=== PATIENT | male | born 1955 | race Caucasian/White ===

== ENCOUNTER 2020-03-14 16:34 | Inpatient (IN) ==
--- NOTE | 2020-03-14 17:03 | Emergency Department Note ---
Impression & Plan Post-operative infection ED Provider Note NAME: FE DEL TORO AGE: 64 SEX: M : 1955 ARRIVES VIA: Walk-In INFORMANT: Patient, ED PROVIDER(S): Hung Paulino DO CHIEF COMPLAINT: Left knee pain HPI: The patient is a 64-year-old male who presented to the emergency department for left knee pain and drainage. The patient has been having swelling and pain in his knee for the last few days. He noticed pain ever since he had surgery. He had surgery on February 14 at [facility] for knee replacement. This procedure was actually a revision of a previous knee replacement. He was seen by his primary surgeon today and sent to the emergency department for further evaluation and for possible admission for left knee infection. The patient describes drainage which is bloody and thin. He denies having any fever. He denies having any chills. He denies having any hip pain nausea or vomiting. He does complain of severe swelling and redness over the area. He does not notice any calf pain. The patient currently does not take blood thinners. He has had no trauma to this knee. ROS: See above HPI for pertinent positives & negatives. A total of 10 systems reviewed and were otherwise negative. PAST MEDICAL HISTORY: See Below PAST SURGICAL HISTORY: See Below FAMILY HISTORY: See Below SOCIAL HISTORY: See Below HOME MEDICATIONS: See Below ALLERGIES: See Below VITALS: See Below PHYSICAL EXAMINATION: GENERAL: Patient is awake alert in no acute distress patient is resting comfortably and showing no signs of anxiety EYES: The conjunctivae are clear. The pupils are round and reactive. EARS, NOSE, MOUTH AND THROAT: The nose is without any evidence of any deformity. NECK: The neck is nontender and supple. RESPIRATORY: Normal respiratory effort is noted there is no evidence of wheezing rhonchi or rales CARDIOVASCULAR: Regular rate and rhythm noted there no murmurs rubs or gallops normal S1 normal S2. GASTROINTESTINAL: The abdomen is soft. Abdomen is nontender. MUSCULOSKELETAL/EXTREMITIES: There is significant effusion and redness to the left knee. There is warmth to the knee joint. There is significant pain with range of motion testing of the left knee. The inferior portion of the surgical site has a small opening with serosanguineous drainage noted. SKIN: There is no obvious evidence of any rash. Pedal edema was noted bilaterally. Pulses are symmetric in both feet. NEUROLOGIC: Patient is awake alert and oriented x3. MEDICAL DECISION MAKING: The patient is a 64-year-old male who presented to the emergency department for an evaluation of left knee pain. The patient appears to have a postoperative infection in his left knee. His surgery was February 14. He was seen by his primary orthopedic physician today and sent to our facility for further evaluation. I discussed his condition with the on-call orthopedic surgeon for [facility]. At this time they would recommend holding antibiotics until formal cultures can be taken and likely the patient will require surgical intervention and washout. At this time the patient does not appear to be septic. He is not tachycardic hypotensive or febrile. If this changes likely he will require IV antibiotics sooner. I discussed this plan with the patient he was agreeable. Triage Nursing notes reviewed. Prior medical records reviewed Vital Signs: reviewed and remarkable for elevated blood pressure. Differential diagnosis: Differential diagnosis in this patient could include postoperative infection, postoperative bleeding, injury to adjacent structure, fracture, systemic infec tion and other differential diagnoses were considered. ER treatment provided: See below Diagnostics interpreted by me: ECG: none Cardiac Monitoring: An order was placed for continuous cardiac monitoring. The monitor shows a rate of 88 with sinus rhythm. Laboratory studies: As stated above and show below. Imaging studies: See below Consultation(s): 1715: I discussed this case with Dr. Townsend. He is agreed to evaluate the patient for further management and likely surgical intervention. 1810: I discussed this case with Dr. Davis. He will evaluate the patient in the emergency department for medical clearance. ED COURSE: Procedures: none PDMP:reviewed and no issues Critical Care: None Past Med/Surg History Medical History Anxiety Depression High cholesterol Hypertension Hypothyroid Surgical History History of left knee replacement Hx of umbilical hernia repair Social History Smoking Status: Never smoker Preferred Language: Luxembourgish Feels Safe at Home: Yes Results & Data (ED) Vital Signs Vital Signs - 24 hr 03/14/20 16:36 Temperature 36.7 C Temperature Source Oral Pulse Rate 68 Respiratory Rate 18 Blood Pressure 150/67 H Blood Pressure Mean 94 Pulse Oximetry 96 Oxygen Delivery Method Room Air Sepsis Recent Fever Within 48 Hours No Sepsis New/Unexplained Change in Mental Status No Sepsis Action Taken by Nursing No Action Required Laboratory Data Result diagrams: 03/14/20 17:10 03/14/20 17:10 Lab Results 03/14/20 03/14/20 03/14/20 Range/Units 17:10 17:10 17:10 WBC 10.40 (4.8-10.8) K/uL RBC 3.88 L (4.7-6.1) M/uL Hgb 10.8 L (14.0-18.0) g/dL Hct 33.5 L (42-52) % MCV 86.3 (80-100) fL MCH 27.8 (25-34) pg MCHC 32.2 (32-36) g/dL RDW Std Deviation 46.2 (36.4-46.3) fL RDW Coeff of Colt 14.8 H (11.5-14.5) % Plt Count 267 (130-400) K/uL MPV 8.7 (7.4-10.4) fL Immature Gran % (Auto) 0.9 % Neut % (Auto) 67.1 % Lymph % (Auto) 13.2 % Levy % (Auto) 10.8 % Eos % (Auto) 7.7 % Baso % (Auto) 0.3 % Neut # (Auto) 6.99 H (1.4-6.5) K/uL Lymph # (Auto) 1.37 (1.2-3.4) K/uL Levy # (Auto) 1.12 H (0.11-0.59) K/uL Eos # (Auto) 0.80 H (0-0.5) K/uL Baso # (Auto) 0.03 (0-0.2) K/uL Immature Gran # (Auto) 0.09 H (0.00-0.02) K/uL ESR 63 H (0-14) mm/hr PT 11.2 (9.0-12.0) Seconds INR 1.1 (0.9-1.1) APTT 28.9 (21.0-31.0) Seconds PTT Ratio 1.0 Sodium (136-145) mmol/L Potassium (3.5-5.1) mmol/L Chloride (98-107) mmol/L Carbon Dioxide (21-32) mmol/L Anion Gap (3-11) BUN (7-18) mg/dl Creatinine (0.6-1.4) mg/dl Est Cr Clr Drug Dosing ml/min Est GFR ( Amer) Est GFR (Non-Af Amer) BUN/Creatinine Ratio (10-20) Glucose (70-99) mg/dl Calcium (8.5-10.1) mg/dl Total Bilirubin (0.2-1) mg/dl AST (15-37) U/L ALT (12-78) U/L Alkaline Phosphatase (45-117) U/L C-Reactive Protein (0-0.29) mg/dl Total Protein (6.4-8.2) gm/dl Albumin (3.4-5.0) gm/dl Globulin (2.5-4.0) gm/dl Albumin/Globulin Ratio (0.9-2) 03/14/20 Range/Units 17:10 WBC (4.8-10.8) K/uL RBC (4.7-6.1) M/uL Hgb (14.0-18.0) g/dL Hct (42-52) % MCV (80-100) fL MCH (25-34) pg MCHC (32-36) g/dL RDW Std Deviation (36.4-46.3) fL RDW Coeff of Colt (11.5-14.5) % Plt Count (130-400) K/uL MPV (7.4-10.4) fL Immature Gran % (Auto) % Neut % (Auto) % Lymph % (Auto) % Levy % (Auto) % Eos % (Auto) % Baso % (Auto) % Neut # (Auto) (1.4-6.5) K/uL Lymph # (Auto) (1.2-3.4) K/uL Levy # (Auto) (0.11-0.59) K/uL Eos # (Auto) (0-0.5) K/uL Baso # (Auto) (0-0.2) K/uL Immature Gran # (Auto) (0.00-0.02) K/uL ESR (0-14) mm/hr PT (9.0-12.0) Seconds INR (0.9-1.1) APTT (21.0-31.0) Seconds PTT Ratio Sodium 134 L (136-145) mmol/L Potassium 4.5 (3.5-5.1) mmol/L Chloride 101 (98-107) mmol/L Carbon Dioxide 29 (21-32) mmol/L Anion Gap 4.0 (3-11) BUN 34 H (7-18) mg/dl Creatinine 1.54 H (0.6-1.4) mg/dl Est Cr Clr Drug Dosing 65.3 ml/min Est GFR ( Amer) 54.1 Est GFR (Non-Af Amer) 46.7 BUN/Creatinine Ratio 22.3 H (10-20) Glucose 82 (70-99) mg/dl Calcium 9.2 (8.5-10.1) mg/dl Total Bilirubin 0.3 (0.2-1) mg/dl AST 16 (15-37) U/L ALT 17 (12-78) U/L Alkaline Phosphatase 79 (45-117) U/L C-Reactive Protein 11.40 H (0-0.29) mg/dl Total Protein 7.5 (6.4-8.2) gm/dl Albumin 2.6 L (3.4-5.0) gm/dl Globulin 4.9 H (2.5-4.0) gm/dl Albumin/Globulin Ratio 0.5 L (0.9-2) Discharge Plan Visit Data Chief Complaint: Infection Stated Complaint: KNEE REPLACEMENT IN FEBRUARY ED Provider: Hung Paulino Discharge Problem: Post-operative infection Patient Disposition: Being Evaluated by Surgeon Condition: Good Forms Stand Alone Forms: My [facility] Referrals Referrals: Yael Coelho C.R.N.P. [Primary Care Provider] - Discharge Problem: Post-operative infection Qualifiers: Encounter type: initial encounter Postoperative infection type: unspecified type Qualified Code(s): T81.40XA - Infection following a procedure, unspecified, initial encounter
[2020-03-14 17:24] LABS: Basophils # (auto) 0.03 K/uL (0-0.2); Basophils % (auto) 0.3 %; Eosinophils % (auto) 7.7 %; Hematocrit (blood only) 33.5 % (42-52); Hemoglobin 10.8 g/dL (14.0-18.0); Immature Granulocytes # (auto) 0.09 K/uL (0.00-0.02); Immature Granulocytes % (auto) 0.9 %; Lymphocytes # (auto) 1.37 K/uL (1.2-3.4); Lymphocytes % (auto) 13.2 %; Mean Corpuscular Hemoglobin 27.8 pg (25-34); Mean Corpuscular Hgb Conc 32.2 g/dL (32-36); Mean Corpuscular Volume 86.3 fL (80-100); Mean Platelet Volume 8.7 fL (7.4-10.4); Monocytes # (auto) 1.12 K/uL (0.11-0.59); Monocytes % (auto) 10.8 %; Neutrophils # (auto) 6.99 K/uL (1.4-6.5); Neutrophils % (auto) 67.1 %; Platelet Count 267 K/uL (130-400); RDW Coefficient of Variation 14.8 % (11.5-14.5); RDW Standard Deviation 46.2 fL (36.4-46.3); Red Blood Count 3.88 M/uL (4.7-6.1)
[2020-03-14 17:39] LABS: INR 1.1 (0.9-1.1); Partial Thromboplastin Time 28.9 Seconds (21.0-31.0); Prothrombin Time 11.2 Seconds (9.0-12.0)
[2020-03-14 17:41] LABS: Albumin Level 2.6 gm/dl (3.4-5.0); BUN Creatinine Ratio 22.3 (10-20); C Reactive Protein 11.4 mg/dl (0-0.29); Calcium 9.2 mg/dl (8.5-10.1); Creatinine Clr Calc Pharmacy 65.3 ml/min; Est GFR (African American) 54.1; Est GFR (Non-African American) 46.7; Potassium 4.5 mmol/L (3.5-5.1)
--- NOTE | 2020-03-14 17:42 | XRay Report ---
XR knee LT 3V CLINICAL HISTORY: infection, recent surgery COMPARISON: Left knee radiographs August 15, 2019. FINDINGS: Alignment of the revision total left knee arthroplasty is anatomic. No periprosthetic frac ture or lucency is noted. Diffuse soft tissue swelling of the left knee is noted. There is moderate p re and infrapatellar soft tissue swelling. No definite joint effusion is noted although sensitivity i s diminished on this exam. IMPRESSION: 1. Status post revision total left knee arthroplasty. No periprosthetic fracture or lucency. 2. Left knee soft tissue swelling. No definite joint effusion. ACT 112: Negative or not required by law. Electronically signed by: Irwin Carlton M.D. 03/14/2020 5:41 PM
[2020-03-14 17:44] LABS: Albumin Globulin Ratio 0.5 (0.9-2); Bilirubin,Total 0.3 mg/dl (0.2-1); Globulin 4.9 gm/dl (2.5-4.0); Total Protein 7.5 gm/dl (6.4-8.2)
[2020-03-14] MEDS ORDERED: ONDANSETRON INJ 2 MG/ML 2 ML VIAL IV PRN (17:51)
--- NOTE | 2020-03-14 19:07 | History & Physical Report ---
Date of Service March 14, 2020 Assessment & Plan (1) Infection of total left knee replacement: The patient is a 64-year-old male with 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 I discussed the case with the patient's primary surgeon Dr. Baum in detail. Due to unavailability to care for the patient at this time we will proceed with irrigation debridement of left total knee with poly-exchange. Dr. Baum will follow up with the patient postoperatively. I have indicated the patient for irrigation debridement of left total knee with poly-exchange, the risk, benefits, complications alternatives to the procedure were explained to the patient detail which include however not limited to persistent or recurrent infections, acute blood loss, blood clots, injury to surrounding nerves, bone, vessels, soft tissue, arthrofibrosis, chronic pain, failure of the prosthesis, dislocation of the joint, limb length discrepancies, need for additional surgery, sepsis, loss of limb and loss of life. Alternatives include no surgery which would result and persistent and worsening infection symptoms and sepsis and . The patient wished to proceed with surgery at this time and informed sent was obtained. -Plan for surgery 03/15/20, I+D L TKA with poly exchange -NPO -Hold antibiotics till intra-operative cultures -Hold Anticoagulation -WBAT LLE -Medical consultation for co-mgnt/optimization for surgery -ID consultation for abx recs History of Present Illness Chief Complaint: Left knee surgical site infection Primary Care Provider: Yael Coelho The patient is a 64 year male who has significant PSHx for revision L TKA by Dr. Baum on 02/15/20. His post operative course was relatively uneventful however on 03/07/20, the patient reported drainage from the inferior aspect of his incision. He was seen by Dr. Baum on 03/11/2020 and 03/14/20 in the office and sent to [facility] for I+D of left TKA secondary to persistent drainage, surgical site infection. Denies F/C/N/V/SOB/CP. Allergies Allergy/AdvReac Type Severity Reaction Status Date / Time No Known Allergies Allergy Unverified 03/14/20 18:21 Home Medications Home Medications Medication Instructions Recorded Confirmed Type Unk Antibiotic Ear Gtts 2 drp OTR UD PRN 03/14/20 03/14/20 History allopurinol 100 mg PO DAILY 03/14/20 03/14/20 History aspirin [Aspir-81] 81 mg PO BID 03/14/20 03/14/20 History atenolol 50 mg PO DAILY 03/14/20 03/14/20 History benzoyl peroxide 1 applic TOPICAL DAILY 03/14/20 03/14/20 History buspirone 30 mg PO BID 03/14/20 03/14/20 History cefadroxil 500 mg PO BID 03/14/20 03/14/20 History celecoxib [Celebrex] 200 mg PO BID 03/14/20 03/14/20 History doxycycline hyclate 50 mg PO DAILY 03/14/20 03/14/20 History escitalopram oxalate [Lexapro] 20 mg PO DAILY 03/14/20 03/14/20 History hydrochlorothiazide 25 mg PO DAILY 03/14/20 03/14/20 History levothyroxine 50 mcg PO DAILY 03/14/20 03/14/20 History lisinopril 20 mg PO DAILY 03/14/20 03/14/20 History meloxicam 15 mg PO DAILY PRN 03/14/20 03/14/20 History ondansetron HCl 8 mg PO Q8H PRN 03/14/20 03/14/20 History oxycodone [Roxicodone] 5 mg PO Q4 PRN 03/14/20 03/14/20 History sennosides [Senokot] 8.6 mg PO HS PRN 03/14/20 03/14/20 History simvastatin 20 mg PO HS 03/14/20 03/14/20 History Past Med/Surg History Medical History Anxiety Depression High cholesterol Hypertension Hypothyroid Surgical History History of left knee replacement Hx of umbilical hernia repair Social History Smoking Status: Former smoker Hx Alcohol Use: No Hx Substance Use: No Preferred Language: Comoran Communication Ability: Effective Golf Technician Required: No Beliefs That Will Affect Care: None Current Living Situation: Family Other Information That Helps Us Care for You: No Feels Safe at Home: Yes Safety Concerns: Feels Safe At This Time Review of Systems Review of Systems: All systems reviewed & are unremarkable except as noted in HPI & below Constitutional: as per Subjective / HPI Physical Exam Physical Exam: LLE NVSI +EHL/FHL/TA/GS SILT grossly, +2 DP pulse, compartments soft NT, moderate effusion, adalid-incisional erythema and warmth to touch, wound dehiscence distal incision 1 cm with serosanguineous drainage. Constitutional: WD/WN, vitals as above Eyes: PERRL, conjunctivae normal, anicteric sclerae ENMT: external ear and nose normal, oropharynx normal Neck: trachea midline, no thyromegaly Respiratory: normal respiratory effort, lungs clear to auscultation Cardiovascular: RRR, no murmur, no edema Gastrointestinal (Abdomen): normal bowel sounds, soft, nontender, no hepatosplenomegaly Musculoskeletal: no cyanosis or clubbing, extremities motor strength 5/5 Skin: no rashes, warm and dry Neurologic: patellar DTR's 2+ bilat, sensation intact Psychiatric: A+Ox3, euthymic affect Lymphatic: no cervical or axillary lymphadenopathy Results & Data Results & Data ([facility]) Vital Signs (Past 12 Hours) Vital Signs Temp Pulse Pulse Resp BP BP Pulse Ox 03/14/20 18:34 56 L 18 135/67 98 03/14/20 16:36 36.7 C 68 18 150/67 H 96 Laboratory Results 03/14/20 03/14/20 03/14/20 Range/Units 17:10 17:10 17:10 WBC (4.8-10.8) K/uL RBC (4.7-6.1) M/uL Hgb (14.0-18.0) g/dL Hct (42-52) % MCV (80-100) fL MCH (25-34) pg MCHC (32-36) g/dL RDW Std Deviation (36.4-46.3) fL RDW Coeff of Colt (11.5-14.5) % Plt Count (130-400) K/uL MPV (7.4-10.4) fL Immature Gran % (Auto) % Neut % (Auto) % Lymph % (Auto) % [place] % (Auto) % Eos % (Auto) % Baso % (Auto) % Neut # (Auto) (1.4-6.5) K/uL Lymph # (Auto) (1.2-3.4) K/uL [place] # (Auto) (0.11-0.59) K/uL Eos # (Auto) (0-0.5) K/uL Baso # (Auto) (0-0.2) K/uL Immature Gran # (Auto) (0.00-0.02) K/uL ESR (0-14) mm/hr PT 11.2 (9.0-12.0) Seconds INR 1.1 (0.9-1.1) APTT 28.9 (21.0-31.0) Seconds PTT Ratio 1.0 Sodium 134 L (136-145) mmol/L Potassium 4.5 (3.5-5.1) mmol/L Chloride 101 (98-107) mmol/L Carbon Dioxide 29 (21-32) mmol/L Anion Gap 4.0 (3-11) BUN 34 H (7-18) mg/dl Creatinine 1.54 H (0.6-1.4) mg/dl Est Cr Clr Drug Dosing 65.3 ml/min Est GFR ( Amer) 54.1 Est GFR (Non-Af Amer) 46.7 BUN/Creatinine Ratio 22.3 H (10-20) Glucose 82 (70-99) mg/dl Calcium 9.2 (8.5-10.1) mg/dl Total Bilirubin 0.3 (0.2-1) mg/dl AST 16 (15-37) U/L ALT 17 (12-78) U/L Alkaline Phosphatase 79 (45-117) U/L C-Reactive Protein 11.40 H (0-0.29) mg/dl Total Protein 7.5 (6.4-8.2) gm/dl Albumin 2.6 L (3.4-5.0) gm/dl Globulin 4.9 H (2.5-4.0) gm/dl Albumin/Globulin Ratio 0.5 L (0.9-2) Procalcitonin 0.12 (0-0.5) ng/ml 03/14/20 03/14/20 Range/Units 17:10 17:10 WBC 10.40 (4.8-10.8) K/uL RBC 3.88 L (4.7-6.1) M/uL Hgb 10.8 L (14.0-18.0) g/dL Hct 33.5 L (42-52) % MCV 86.3 (80-100) fL MCH 27.8 (25-34) pg MCHC 32.2 (32-36) g/dL RDW Std Deviation 46.2 (36.4-46.3) fL RDW Coeff of Colt 14.8 H (11.5-14.5) % Plt Count 267 (130-400) K/uL MPV 8.7 (7.4-10.4) fL Immature Gran % (Auto) 0.9 % Neut % (Auto) 67.1 % Lymph % (Auto) 13.2 % [place] % (Auto) 10.8 % Eos % (Auto) 7.7 % Baso % (Auto) 0.3 % Neut # (Auto) 6.99 H (1.4-6.5) K/uL Lymph # (Auto) 1.37 (1.2-3.4) K/uL [place] # (Auto) 1.12 H (0.11-0.59) K/uL Eos # (Auto) 0.80 H (0-0.5) K/uL Baso # (Auto) 0.03 (0-0.2) K/uL Immature Gran # (Auto) 0.09 H (0.00-0.02) K/uL ESR 63 H (0-14) mm/hr PT (9.0-12.0) Seconds INR (0.9-1.1) APTT (21.0-31.0) Seconds PTT Ratio Sodium (136-145) mmol/L Potassium (3.5-5.1) mmol/L Chloride (98-107) mmol/L Carbon Dioxide (21-32) mmol/L Anion Gap (3-11) BUN (7-18) mg/dl Creatinine (0.6-1.4) mg/dl Est Cr Clr Drug Dosing ml/min Est GFR ( Amer) Est GFR (Non-Af Amer) BUN/Creatinine Ratio (10-20) Glucose (70-99) mg/dl Calcium (8.5-10.1) mg/dl Total Bilirubin (0.2-1) mg/dl AST (15-37) U/L ALT (12-78) U/L Alkaline Phosphatase (45-117) U/L C-Reactive Protein (0-0.29) mg/dl Total Protein (6.4-8.2) gm/dl Albumin (3.4-5.0) gm/dl Globulin (2.5-4.0) gm/dl Albumin/Globulin Ratio (0.9-2) Procalcitonin (0-0.5) ng/ml Diagnostic Findings XR knee LT 3V CLINICAL HISTORY: infection, recent surgery COMPARISON: Left knee radiographs August 15, 2019. FINDINGS: Alignment of the revision total left knee arthroplasty is anatomic. No periprosthetic fracture or lucency is noted. Diffuse soft tissue swelling of the left knee is noted. There is moderate pre and infrapatellar soft tissue swelling. No definite joint effusion is noted although sensitivity is diminished on this exam. IMPRESSION: 1. Status post revision total left knee arthroplasty. No periprosthetic fracture or lucency. 2. Left knee soft tissue swelling. No definite joint effusion.
--- NOTE | 2020-03-14 19:42 | Hospitalist Consultation ---
Date of Consultation March 14, 2020 Assessment & Plan (1) Infection of total left knee replacement: Admission under orthopedics for planned surgery tomorrow, I&D with poly exchange. Oxycodone PO or dilaudid 0.5mg IV (when NPO) PRN for pain, no NSAIDs unless ordered by orthopedics NPO after midnight Will increase IV fluids order NSS to 125 ml/hr with addition 500ml bolus now as although baseline Cr unknown I suspect he is dehydrated No cultures from clinic therefore holding off antibiotics until culture taken in surgery Will defer post op DVT prophylaxis to orthopedics Patient is medically optimized for surgery - assuming no drastic changes in his labs in the morning. Revised cardiac risk score 0, 3.9% risk of , DE or cardiac arrest. (2) Hypothyroid: Patient reports well controlled for years Continue levothyroxine 50 mcg PO daily (3) Hypertension: Hold HCTZ pre-operatively Continue atenolol and lisinopril (4) High cholesterol: Continue simvastatin (5) Depression: Continue Lexapro 20mg PO daily (6) Anxiety: Continue Buspar 30mg PO BID History of Present Illness Reason for Consultation: Left knee infection Attending Physician: Jasno Strange DO History of Present Illness Liam Oviedo is a 64 year old who presents to the ER on the advice of his orthopedic surgeon due to left TKA infection. He is primarily under the orthopedic team. Medicine consult for pre-op clearance. He reports original operation performed at [facility] in [place] 4.5 years ago. He had been having pain ever since that operation and eventual underwent revision in February with Dr Baum. He reports no problems with the anesthesia on that occasion. Part of his pre-op clearance was a negative NM stress test. Initial doing well after this operation. He started having Knee erythema, swelling and drainage 1 week ago on Tuesday and he was prescribed cefadroxil. He went to his orthopedic surgeons office (saw TREMAYNE) 4 days ago with significant drainage described by the patient although no culture taken at that time. He reports it has been getting worse since then with increasing pain. Went back to see Dr Baum today and advised to go to [facility] ER due to infected knee joint. In addition to the PO cefadroxil for the last week he also takes doxycycline chronically at 50mg PO daily for acne. No known CAD, No chest pain or shortness of breath on exertion. Former smoker quit 1994, smoked on and off for 20 years. No fevers, chills, shortness of breath, cough, loss of taste or smell or known COVID-19 exposure. Allergies Allergy/AdvReac Type Severity Reaction Status Date / Time No Known Allergies Allergy Unverified 03/14/20 18:21 Home Medications Home Medications Medication Instructions Recorded Confirmed Type Unk Antibiotic Ear Gtts 2 drp OTR UD PRN 03/14/20 03/14/20 History allopurinol 100 mg PO DAILY 03/14/20 03/14/20 History aspirin [Aspir-81] 81 mg PO BID 03/14/20 03/14/20 History atenolol 50 mg PO DAILY 03/14/20 03/14/20 History benzoyl peroxide 1 applic TOPICAL DAILY 03/14/20 03/14/20 History buspirone 30 mg PO BID 03/14/20 03/14/20 History cefadroxil 500 mg PO BID 03/14/20 03/14/20 History celecoxib [Celebrex] 200 mg PO BID 03/14/20 03/14/20 History doxycycline hyclate 50 mg PO DAILY 03/14/20 03/14/20 History escitalopram oxalate [Lexapro] 20 mg PO DAILY 03/14/20 03/14/20 History hydrochlorothiazide 25 mg PO DAILY 03/14/20 03/14/20 History levothyroxine 50 mcg PO DAILY 03/14/20 03/14/20 History lisinopril 20 mg PO DAILY 03/14/20 03/14/20 History meloxicam 15 mg PO DAILY PRN 03/14/20 03/14/20 History ondansetron HCl 8 mg PO Q8H PRN 03/14/20 03/14/20 History oxycodone [Roxicodone] 5 mg PO Q4 PRN 03/14/20 03/14/20 History sennosides [Senokot] 8.6 mg PO HS PRN 03/14/20 03/14/20 History simvastatin 20 mg PO HS 03/14/20 03/14/20 History Patient History Medical History Anxiety Depression High cholesterol Hypertension Hypothyroid Surgical History History of left knee replacement Hx of umbilical hernia repair Social History Smoking Status: Former smoker Hx Alcohol Use: No Hx Substance Use: No Preferred Language: South Sudanese Communication Ability: Effective V Groove Cutter Required: No Beliefs That Will Affect Care: None Current Living Situation: Family Other Information That Helps Us Care for You: No Feels Safe at Home: Yes Safety Concerns: Feels Safe At This Time Review of Systems Review of Systems: All systems reviewed & are unremarkable except as noted in HPI & below Physical Exam Constitutional: well developed, + acute distress (pain in left knee) and + morbidly obese; + not well nourished Eyes: + anicteric sclerae; normal pupil size ENMT: external ear and nose normal, oropharynx normal Neck: trachea midline, no thyromegaly Respiratory: normal respiratory effort, lungs clear to auscultation Cardiovascular: Rate/Rhythm: regular rate and regular rhythm Heart Sounds: no murmur Vessels: no JVD Extremities: normal capillary refill and + pedal edema (trace b/l equal) Gastrointestinal (Abdomen): normal bowel sounds, soft, nontender, no hepatosplenomegaly Musculoskeletal: no cyanosis or clubbing, extremities motor strength 5/5 Skin: Cellulitis area around distal and proximal surgical incision with swelling and warmth, bloody drainage from distal surgical wound Neurologic: moves all extremities and awake; no focal motor deficits and not confused Psychiatric: A+Ox3, euthymic affect Genitourinary: no CVA tenderness Results & Data Results & Data ([facility]) Vital Signs (Past 12 Hours) Vital Signs Temp Pulse Pulse Resp BP BP Pulse Ox 03/14/20 18:34 56 L 18 135/67 98 03/14/20 16:36 36.7 C 68 18 150/67 H 96 Diagnostic Findings XR chest 2V PA/lateral IMPRESSION: No acute cardiopulmonary findings. XR chest 2V PA/lateral IMPRESSION: No acute cardiopulmonary findings. ECG Indication: other (pre-op) Rate (beats per minute): 63 Rhythm: normal sinus Findings: no acute ischemic change Comparison ECG Date: no prior available PG Care Time/CCT Total # of Minutes Spent Total Time Spent with Patient: Total time spent is greater than 50% in coordination of care (as documented) at patient's floor/unit and/or counseling patient: Coding Level of Care Code 87599 Inpt Consult Level 4 Diagnoses Infection of total left knee replacement T84.54XA Hypothyroid E03.9 Hypertension I10 High cholesterol E78.00 Depression F32.9 Anxiety F41.9
--- NOTE | 2020-03-14 20:20 | XRay Report ---
XR chest 2V PA/lateral CLINICAL HISTORY: Preoperative evaluation. COMPARISON STUDY: No previous studies for comparison. FINDINGS: Lung volumes are normal. Mild linear left basilar opacity suggests atelectasis or scarring. There is no pneumothorax or pleural effusion. Cardiac size is normal. Mediastinal contours are jero l. There is no evidence for pulmonary edema. Postoperative findings within the right shoulder are inc identally noted. A screw fragment is noted. IMPRESSION: No acute cardiopulmonary findings. ACT 112: Negative or not required by law. Electronically signed by: Irwin Carlton M.D. 03/14/2020 8:18 PM
[2020-03-14] MEDS ORDERED: SENNA 8.6 MG TAB PO SCH (21:00)
[2020-03-14] MEDS ORDERED: ONDANSETRON 8MG OD TAB PO PRN (21:00)
[2020-03-14] MEDS ORDERED: ASPIRIN 81 MG ECTAB PO SCH (21:00)
[2020-03-14] MEDS: OXYCODONE HCL IR 5 MG TAB (IMMEDIATE RELEASE) PO PRN (21:05)
[2020-03-14] MEDS: BusPIRone 15 MG TAB PO SCH (21:06)
[2020-03-14] MEDS: DOCUSATE SODIUM 100 MG CAP PO SCH (21:06)
[2020-03-14] MEDS: SIMVASTATIN 20 MG TAB PO SCH (21:11)
[2020-03-14] MEDS ORDERED: SODIUM CHLORIDE 0.9% 1000ML 500 ML IV ONE (21:45)
[2020-03-15] MEDS: SODIUM CHLORIDE 0.9% 1000ML 1,000 ML IV SCH ×3 (00:01→15:26)
[2020-03-15] MEDS: ACETAMINOPHEN 500 MG TAB PO PRN (00:01)
[2020-03-15] MEDS: OXYCODONE HCL IR 5 MG TAB (IMMEDIATE RELEASE) PO PRN ×3 (05:06→20:25)
[2020-03-15 06:22] LABS: Basophils # (auto) 0.02 K/uL (0-0.2); Basophils % (auto) 0.2 %; Eosinophils # (auto) 0.81 K/uL (0-0.5); Eosinophils % (auto) 9.6 %; Hematocrit (blood only) 29.4 % (42-52); Hemoglobin 9.5 g/dL (14.0-18.0); Immature Granulocytes # (auto) 0.06 K/uL (0.00-0.02); Immature Granulocytes % (auto) 0.7 %; Lymphocytes # (auto) 1.28 K/uL (1.2-3.4); Lymphocytes % (auto) 15.1 %; Mean Corpuscular Hemoglobin 27.9 pg (25-34); Mean Corpuscular Hgb Conc 32.3 g/dL (32-36); Mean Corpuscular Volume 86.2 fL (80-100); Mean Platelet Volume 8.8 fL (7.4-10.4); Monocytes # (auto) 0.71 K/uL (0.11-0.59); Monocytes % (auto) 8.4 %; Neutrophils # (auto) 5.59 K/uL (1.4-6.5); Platelet Count 234 K/uL (130-400); RDW Coefficient of Variation 14.8 % (11.5-14.5); RDW Standard Deviation 46.6 fL (36.4-46.3); Red Blood Count 3.41 M/uL (4.7-6.1); White Blood Count 8.47 K/uL (4.8-10.8)
[2020-03-15 06:49] LABS: BUN Creatinine Ratio 22.6 (10-20); Calcium 8.2 mg/dl (8.5-10.1); Creatinine Clr Calc Pharmacy 69.3 ml/min; Est GFR (African American) 58.2; Est GFR (Non-African American) 50.2; Potassium 3.9 mmol/L (3.5-5.1)
[2020-03-15] MEDS: HYDROmorphone INJ 0.5 MG/0.5 ML SYR IV PRN ×4 (07:31→23:53)
[2020-03-15] MEDS: DOCUSATE SODIUM 100 MG CAP PO SCH ×3 (08:44→20:27)
[2020-03-15] MEDS: BusPIRone 15 MG TAB PO SCH ×2 (08:44→20:27)
[2020-03-15] MEDS: ESCITALOPRAM OXALATE 20 MG TAB PO SCH (08:45)
[2020-03-15] MEDS ORDERED: hydroCHLOROthiazide 25 MG TAB PO SCH (09:00)
[2020-03-15] MEDS ORDERED: DOXYCYCLINE HYCLATE 50 MG CAP PO SCH (09:00)
[2020-03-15] MEDS ORDERED: lisinopriL 20 MG TAB PO SCH (09:00)
[2020-03-15] MEDS ORDERED: fentaNYL citrate 100 MCG/2 ML VIAL ONE ×6 (09:57→14:31)
--- NOTE | 2020-03-15 10:05 | History & Physical Bridge Note ---
Date of Service March 15, 2020 History & Physical Bridge Note I have examined the patient, reviewed the History & Physical and in the interval since the performance of the History & Physical I have noted the following changes of clinical significance: no changes noted
--- NOTE | 2020-03-15 10:15 | Anesthesiology Consultation ---
Date of Service March 15, 2020 Assessment & Plan Chart Review Chart Review: Acceptable Risk for Surgery Consults Requested none History Surgery Operation Date: 03/15/20 09:10 Proposed Procedures p Incision and Drainage Left Total Knee with Poly Exchange - Jason Strange DO Height/Weight Height: 5 ft 9 in Weight: 135 kg Allergies Allergy/AdvReac Type Severity Reaction Status Date / Time No Known Allergies Allergy Unverified 03/14/20 18:21 Medications Home Medications Medication Instructions Recorded Confirmed Last Taken Unk Antibiotic Ear Gtts 2 drp OTR UD PRN 03/14/20 03/14/20 Unknown allopurinol 100 mg PO DAILY 03/14/20 03/14/20 Unknown aspirin [Aspir-81] 81 mg PO BID 03/14/20 03/14/20 Unknown atenolol 50 mg PO DAILY 03/14/20 03/14/20 Unknown benzoyl peroxide 1 applic TOPICAL DAILY 03/14/20 03/14/20 Unknown buspirone 30 mg PO BID 03/14/20 03/14/20 Unknown cefadroxil 500 mg PO BID 03/14/20 03/14/20 Unknown celecoxib [Celebrex] 200 mg PO BID 03/14/20 03/14/20 Unknown doxycycline hyclate 50 mg PO DAILY 03/14/20 03/14/20 Unknown escitalopram oxalate [Lexapro] 20 mg PO DAILY 03/14/20 03/14/20 Unknown hydrochlorothiazide 25 mg PO DAILY 03/14/20 03/14/20 Unknown levothyroxine 50 mcg PO DAILY 03/14/20 03/14/20 Unknown lisinopril 20 mg PO DAILY 03/14/20 03/14/20 Unknown meloxicam 15 mg PO DAILY PRN 03/14/20 03/14/20 Unknown ondansetron HCl 8 mg PO Q8H PRN 03/14/20 03/14/20 Unknown oxycodone [Roxicodone] 5 mg PO Q4 PRN 03/14/20 03/14/20 Unknown sennosides [Senokot] 8.6 mg PO HS PRN 03/14/20 03/14/20 Unknown simvastatin 20 mg PO HS 03/14/20 03/14/20 Unknown Active Medications Generic Name Dose Route Start Last Admin Trade Name Freq PRN Reason Stop Dose Admin Acetaminophen 1,000 mg 03/14/20 17:51 03/15/20 00:01 Tylenol PO 04/13/20 17:50 1,000 mg Q8H PRN Administration Temp>38.5 or Headache Aspirin 81 mg 03/14/20 21:00 03/14/20 21:06 Ecotrin Ectab PO 04/13/20 20:59 81 mg BID OSWALDO Administration Buspirone HCl 30 mg 03/14/20 21:00 03/15/20 08:44 Buspar PO 04/13/20 20:59 Not Given BID OSWALDO Docusate Sodium 100 mg 03/14/20 21:00 03/15/20 08:44 Colace PO 04/13/20 20:59 Not Given BID OSWALDO Escitalopram Oxalate 20 mg 03/15/20 09:00 03/15/20 08:45 Lexapro Tab PO 04/14/20 08:59 Not Given DAILY OSWALDO Hydromorphone HCl 0.5 mg 03/14/20 21:49 03/15/20 07:31 Dilaudid IV 03/28/20 21:48 0.5 mg Q2H PRN Administration Pain Sodium Chloride 1,000 mls @ 125 mls/hr 03/14/20 23:55 03/15/20 07:31 Nss 1000ml IV 04/13/20 23:54 125 mls/hr .Q8H OSWALDO Administration Oxycodone HCl 5 mg 03/14/20 20:36 03/15/20 05:06 Roxicodone Immediate Rel PO 03/28/20 20:35 5 mg Q4 PRN Administration Pain Sennosides 8.6 mg 03/14/20 21:00 03/14/20 21:11 Senokot PO 04/13/20 20:59 8.6 mg HS OSWALDO Administration Simvastatin 20 mg 03/14/20 21:00 03/14/20 21:11 Zocor PO 04/13/20 20:59 20 mg HS OSWALDO Administration NPO Date Last Intake of Fluids: 03/14/20 Time Last Intake of Fluids: 22:00 Date Last Intake of Solids: 03/14/20 Time Last Intake of Solids: 22:00 Past Medical History Medical History Anxiety Depression High cholesterol Hypertension Hypothyroid Past Surgical History Surgical History History of left knee replacement Hx of umbilical hernia repair Social History Smoking Status: Former smoker Hx Alcohol Use: No Hx Substance Use: No Physical Exam Vital Signs Last Vital Signs Temp 36.6 C 03/15/20 07:43 Pulse 58 L 03/15/20 07:43 Resp 16 03/15/20 07:43 BP 145/79 H 03/15/20 07:43 Pulse Ox 97 03/15/20 07:43 Testing Laboratory Results 03/15/20 05:14 03/15/20 05:14 PT 11.2 Seconds (9.0-12.0) 03/14/20 17:10 INR 1.1 (0.9-1.1) 03/14/20 17:10 APTT 28.9 Seconds (21.0-31.0) 03/14/20 17:10 Blood Type A Positive 03/15/20 07:36 Antibody Screen NEGATIVE 03/15/20 07:36
[2020-03-15] MEDS ORDERED: PROMETHAZINE HCL 12.5 MG in SODIUM CHLORIDE 0.9% 50 ML IV PRN (10:17)
[2020-03-15] MEDS ORDERED: ONDANSETRON INJ 2 MG/ML 2 ML VIAL IV PRN ×2 (10:17→15:10)
[2020-03-15] MEDS ORDERED: ePHEDrine sulfate 50 MG/ML AMP IV PRN (10:17)
[2020-03-15] MEDS ORDERED: METOCLOPRAMIDE HCL INJ 5 MG/ML 2 ML VIAL IV PRN ×2 (10:17→15:10)
[2020-03-15] MEDS ORDERED: HYDROmorphone INJ 2 MG/ML SYR/VIAL IV PRN (10:17)
[2020-03-15] MEDS ORDERED: ATROPINE SULFATE 0.1 MG/ML 10ML SYR IV PRN (10:17)
--- NOTE | 2020-03-15 10:22 | Electrocardiogram Report ---
Test Reason : Blood Pressure : / mmHG Vent. Rate : 063 BPM Atrial Rate : 063 BPM P-R Int : 164 ms QRS Dur : 086 ms QT Int : 440 ms P-R-T Axes : 055 055 074 degrees QTc Int : 450 ms Normal sinus rhythm Normal ECG No previous ECGs available Confirmed by Edison Ortiz ([id number]) on 03/15/2020 10:22:01 AM Referred By: REFERRED SELF Confirmed By:Elvis Ortiz
[2020-03-15] MEDS: LEVOTHYROXINE SODIUM 50 MCG TABLET PO SCH (10:37)
[2020-03-15] MEDS: ATENOLOL 50 MG TABLET PO SCH (10:37)
[2020-03-15] MEDS: lisinopriL 20 MG TAB PO SCH (10:38)
[2020-03-15] MEDS: allopurinoL 100 MG TAB PO SCH (10:38)
[2020-03-15] MEDS ORDERED: VANCOMYCIN CONSULT ACTIVE PRN ×2 (11:19→15:10)
[2020-03-15] MEDS ORDERED: CEFEPIME 1,000 MG in SYRINGE 0 ML IV ONE (11:30)
[2020-03-15] MEDS ORDERED: VANCOMYCIN HCL 1,000 MG/270 ML BAG IV ONE (11:30)
[2020-03-15] MEDS ORDERED: ROCURONIUM BROMIDE 10 MG/ML 5 ML VIAL IV ONE (11:49)
[2020-03-15] MEDS ORDERED: LIDOCAINE HCL 2% 2 ML VIAL/AMP(20MG/ML) INFIL ONE (11:49)
[2020-03-15] MEDS ORDERED: GLYCOPYRROLATE 0.2 MG/ML VIAL ONE (11:49)
[2020-03-15] MEDS ORDERED: NEOSTIGMINE METHYLSULFATE 5 MG/5 ML SYR ONE (11:49)
[2020-03-15] MEDS ORDERED: ONDANSETRON INJ 2 MG/ML 2 ML VIAL ONE (11:49)
[2020-03-15] MEDS ORDERED: PROPOFOL IV EMULSION 10 MG/ML 20 ML VIAL IV ONE ×2 (11:49→13:05)
[2020-03-15] MEDS: BACITRACIN INJ 50,000 UNIT VIAL ONE ×2 (12:12→12:52)
--- NOTE | 2020-03-15 13:23 | Operative Report ---
Post Operative Report Pre & Post Diagnosis Operation Date: 03/15/20 09:10 Pre-Op Diagnosis: POST OPERATIVE SURGICAL SITE INFECTION Post-Op Diagnosis: POST OPERATIVE SURGICAL SITE INFECTION I identified the patient and participated in the time-out.: Yes Procedure Operation Date: 03/15/20 09:10 Actual Procedures p Incision and Drainage Left Total Knee with Poly Exchange(Left) - Jason Strange DO Surgeon Jason Strange DO Educational Interpreter Jessica Arredondo Estimated Blood Loss 150 Findings Consistent with Post-Op Diagnosis Fluids 1000 cc LR Specimens Culture swabs x3 Tissue cultures deep to fascia x3 Drains Hemovac drain deep to fascia Anesthesia Type General Complications none Disposition Disposition: Recovery Room Indications The patient is a 64 year male who has significant PSHx for revision L TKA by Dr. Baum on 02/15/20. His post operative course was relatively uneventful however on 03/07/20, the patient reported drainage from the inferior aspect of his incision. He was seen by Dr. Baum on 03/11/2020 and 03/14/20 in the office and sent to [facility] for I+D of left TKA secondary to persistent drainage, surgical site infection. 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 I discussed the case with the patient's primary surgeon Dr. Baum in detail. Due to unavailability to care for the patient at this time we will proceed with irrigation debridement of left total knee with poly-exchange. Dr. Baum will follow up with the patient postoperatively. I have indicated the patient for irrigation debridement of left total knee with poly-exchange, the risk, benefits, complications alternatives to the procedure were explained to the patient detail which include however not limited to persistent or recurrent infections, acute blood loss, blood clots, injury to surrounding nerves, bone, vessels, soft tissue, arthrofibrosis, chronic pain, failure of the prosthesis, dislocation of the joint, limb length discrepancies, need for additional surgery, sepsis, loss of limb and loss of life. Alternatives include no surgery which would result and persistent and worsening infection symptoms and sepsis and . The patient wished to proceed with surgery at this time and informed sent was obtained. Description of Procedure COMPONENTS USED: Akdemia Triathlon knee system: Tibial articulating surface #5 13 TS Following induction of general anesthesia, a tourniquet was applied to the proxi mal aspect of the thigh and the patient's left leg was prepped and draped in the usual sterile manner. A timeout was performed and site moon verified. Antibiotics were held until intra-operative cultures could be obtained. The patient had a swollen erythematous knee with serosanguineous drainage from the distal aspect of his anterior midline knee incision. The limb was elevated for 5 minutes and tourniquet was inflated to 300 mmHg. The prior incision was identified and a longitudinal midline incision was made over the anterior knee. Previous surgical scar was excised. Subcutaneous tissue was sharply dissected down to fascia. Electrocautery was used for hemostasis. There was a moderate amount of serosanguineous fluid. A large defect was appreciated in the superior medial arthrotomy. Culture swabs x 3 of synovial fluid was obtained. The remaining medial arthrotomy repair was taken down and suture remnants removed. Meticulous removal of hypertrophic synovium and scar tissue was performed with Bovie. Three tissue samples were collected and sent for GS and cultures. IV vancomycin and cefepime was given at this time. Next, the anterior fat pad was removed to aid in visualization. The medial face of the tibia was cleared of soft tissue first with a bovie and a agee elevator. This tissue was retracted posteriorly using a blunt hohmann. The patella was subluxed laterally and the knee was flexed. Once adequate access was obtained to the total knee prosthesis we removed the tibial articular surface. The femoral component examined and was well fixed and without signs of wear or loosening. The tibial component was examined and was well fixed and without signs of wear or loosening. Access was gained to the patella and meticulous removal of fibrous soft tissue surrounding the patella button was removed. The patella was cleared of any remaining osteophytes utilizing the rongeur. The patella button was found to be stable and well fixed and without signs of wear. At this time an extensive debridement was performed followed by irrigation of 9L of sterile saline solution with bacitracin. A trial size 13 tibia articular tray was placed and varus-valgus balance assessed in 0 degrees of extension and 30, 60 and 90 degrees of flexion. A final tibial articular surface size 13 TS was chosen. The trial tibial articular surface was removed and the knee was again irrigated copiously with sterile saline solution with bacitracin. Access to the proximal tibia was once again obtained and the final component inserted. A Betadine soak was performed. After 3 minutes, the knee was once more irrigated with copious sterile saline solution with bacitracin. Hemovac drain was inserted deep to fascia layer. The capsulotomy was closed with #1 PDS followed by subcutaneous closure with 2-0 PDS suture and skin was closed with nahum. A sterile dry dressing was applied which included Xeroform, 4 x 4's, ABDs, drain sponge, Webril and Travis wrap. Tourniquet was deflated at 122 minutes. The knee was placed in a knee immobilizer at this time. The patient tolerated the procedure well and was taken to the PACU in stable condition. Due to the complex nature of the procedure, the entire surgery was performed with the operational assistance of Jessica Grubbs PA-C. The retail sales assistant, under direct supervision, was involved in the actual performance of all aspects of the surgical procedure including patient positioning, hemostasis, tissue retraction, instrument management and wound closure. I attest to the content of the Intraoperative Record and any orders documented therein. Any exceptions are noted below.
--- NOTE | 2020-03-15 13:23 | Post Operative Brief Note ---
Immediate Post Op Note v1 Date of Surgery March 15, 2020 Pre & Post Diagnosis Operation Date: 03/15/20 09:10 Pre-Op Diagnosis: POST OPERATIVE SURGICAL SITE INFECTION Post-Op Diagnosis: POST OPERATIVE SURGICAL SITE INFECTION I identified the patient and participated in the time-out.: Yes Procedure Operation Date: 03/15/20 09:10 Actual Procedures p Incision and Drainage Left Total Knee with Poly Exchange(Left) - Jason Strange DO Surgeon Jason Strange DO Shampoo Person Jessica Arredondo Estimated Blood Loss 150 Findings Consistent with Post-Op Diagnosis Fluids 1000 cc LR Specimens Culture swabs x3 Tissue cultures deep to fascia x3 Drains Hemovac Drain (10 fr dual luman) Anesthesia Type General Complications none Disposition Disposition: Recovery Room Overlapping Procedure I was present for: the critical portions of procedure. I was immediately available: during the entire case. Back up surgeon: was not required during procedure.
--- NOTE | 2020-03-15 13:25 | Hospitalist Progress Note ---
Date of Service March 15, 2020 Assessment & Plan (1) Infection of total left knee replacement: Admission under orthopedics for planned I&D with poly exchange. - Pain control per surgery - Discussed with Dr. Strange today; plan for surgery today. Will get 3 fluid samples and some tissue as well to try to get successful culture. - Agree with vanc/cefepime after cultures obtained. - Defer post op DVT prophylaxis to orthopedics (2) CKD (chronic kidney disease) stage 3, GFR 30-59 ml/min: Unclear if current Cr is actually his baseline or not, but Cr stable x 2 days at ~1.5, eGFR ~45. - Monitor Cr while on abx - Avoid nephrotoxins as able (3) Hypothyroid: Patient reports well controlled for years. - Continue levothyroxine 50 mcg PO daily (4) Hypertension: BP presently 145/80. - Hold HCTZ pre-operatively - Continue atenolol and lisinopril (5) High cholesterol: - Continue simvastatin (6) Depression: - Continue Lexapro 20mg PO daily (7) Anxiety: - Continue Buspar 30mg PO BID (8) DVT prophylaxis: SCDs - Defer chemoprophylaxis to surgical team Admission and Anticipated Discharge Date Admission Date: March 14, 2020 Subjective Stable today. Plan for surgery. Reports no fevers/chills, chest pain, shortness of breath, abdominal pain, nausea, or vomiting. Physical Exam Constitutional: WD/WN, vitals as above Eyes: EOM intact bilaterally; no conjunctival abnormality ENMT: external ear and nose normal, oropharynx normal Neck: trachea midline, no thyromegaly normal visual inspection Respiratory: normal respiratory effort, lungs clear to auscultation no respiratory distress Cardiovascular: RRR, no murmur, no edema Gastrointestinal (Abdomen): Inspection/Auscultation: abdomen normal to inspection; abdomen not distended Musculoskeletal: no cyanosis or clubbing, extremities motor strength 5/5 Skin: no rashes, warm and dry Neurologic: moves all extremities and awake Psychiatric: Orientation: alert, oriented to person and cooperative Results & Data Results & Data ([facility]) Vital Signs (Past 12 Hours) Vital Signs Temp Pulse Resp BP Pulse Ox 03/15/20 07:43 36.6 C 58 L 16 145/79 H 97 PG Care Time/CCT Total # of Minutes Spent Total Time Spent with Patient: Total time spent is greater than 50% in coordination of care (as documented) at patient's floor/unit and/or counseling patient: Coding Level of Care Code 98023 Subseq Hosp Care Lvl 2 Diagnoses Infection of total left knee replacement T84.54XA CKD (chronic kidney disease) stage 3, GFR 30-59 ml/min N18.3 Hypothyroid E03.9 Hypertension I10 High cholesterol E78.00 Depression F32.9 Anxiety F41.9 DVT prophylaxis Z29.9
[2020-03-15] MEDS: fentaNYL citrate 100 MCG/2 ML VIAL IV PRN ×4 (14:22→14:37)
--- NOTE | 2020-03-15 14:29 | Orthopedic Progress Note ---
Date of Service March 15, 2020 Assessment & Plan (1) Infection of total left knee replacement: Status post I&D left total knee with poly-exchange -Vancomycin/cefepime -DVT prophylaxis: SCDs, teds, ASA twice daily -Weight-bear as tolerates left lower extremity -PT/OT -Knee immobilizer in bed -Postoperative x-ray Demonstrates well aligned well fixed total knee prosthesis without evidence of fracture dislocation -A.m. labs -Follow up IO cultures -DC planning Admission and Anticipated Discharge Date Admission Date: March 14, 2020 Subjective Post Operative Progress Note Patient seen in recovery, comfortable, denies complaints, pain well controlled, no acute issues. Review of Systems Review of Systems: All systems reviewed & are unremarkable except as noted in HPI & below Constitutional: as per Subjective / HPI Physical Exam Physical Exam: LLE NVSI +EHL/FHL/TA/GS SILT grossly, +2 DP pulse, compartments soft NT, dressing cdi. drain intact Constitutional: WD/WN, vitals as above Results & Data ([place]) Vital Signs (Past 12 Hours) Vital Signs Temp Pulse Resp BP Pulse Ox 03/15/20 07:43 36.6 C 58 L 16 145/79 H 97
--- NOTE | 2020-03-15 14:32 | XRay Report ---
XR knee LT 1 or 2V routine CLINICAL HISTORY: 2 view, post op TKA poly swap I+D, in PACU COMPARISON: 03/14/2020 DISCUSSION: Anatomic alignment post total left knee revisions. Could contact between prosthetic and u nderlying bone. Infected soft tissue postoperative change IMPRESSION: Anatomic alignment post total left knee revision. ACT 112: Negative or not required by law. The above report was generated using voice recognition software. It may contain grammatical, syntax or spelling errors. Electronically signed by: Jean-Paul Shepherd M.D. 03/15/2020 2:31 PM
[2020-03-15] MEDS ORDERED: VANCOMYCIN HCL 2,000 MG in SODIUM CHLORIDE 0.9% 250 ML IV SCH (15:10)
[2020-03-15] MEDS ORDERED: bisacodyL 10 MG SUPP PR PRN (15:10)
[2020-03-15] MEDS ORDERED: NALOXONE HCL 0.4 MG/1 ML VIAL/CARP IV PRN (15:10)
[2020-03-15] MEDS ORDERED: MAGNESIUM HYDROXIDE SUSP 30 ML UDC PO PRN (15:10)
[2020-03-15] MEDS ORDERED: VANCOMYCIN HCL 1,750 MG in SODIUM CHLORIDE 0.9% 500 ML IV STA (16:03)
--- NOTE | 2020-03-15 16:06 | Anesthesiology Progress Note ---
Date of Service March 15, 2020 Anesthesia Post Procedure Vital Signs Vital Signs: Temp Pulse Pulse Pulse Resp BP BP 03/15/20 14:50 36.6 C 81 16 134/66 03/15/20 14:40 83 16 154/78 H 03/15/20 14:30 83 16 159/72 H 03/15/20 14:20 85 16 168/65 H 03/15/20 14:13 36.6 C 83 16 174/78 H 03/15/20 07:43 36.6 C 58 L 16 145/79 H 03/14/20 23:51 36.5 C 61 18 168/78 H 03/14/20 19:39 36.5 C 61 16 162/82 H 03/14/20 18:34 56 L 18 135/67 03/14/20 16:36 36.7 C 68 18 150/67 H Pulse Ox 03/15/20 14:50 98 03/15/20 14:40 98 03/15/20 14:30 98 03/15/20 14:20 100 03/15/20 14:13 100 03/15/20 07:43 97 03/14/20 23:51 94 03/14/20 19:39 96 03/14/20 18:34 98 03/14/20 16:36 96 Pain Intensity Left Knee: Pain Intensity: 7 Transfer of Care Handoff Completed per policy Notes Mental Status: alert / awake / arousable and participated in evaluation Patient Amnestic to Procedure: Yes Nausea / Vomiting: adequately controlled Pain: adequately controlled Airway Patency, RR, SpO2: stable & adequate BP & HR: stable & adequate Hydration State: stable & adequate Anesthetic Complications: no major complications apparent
--- NOTE | 2020-03-15 16:15 | Pharmacy Report ---
Pharmacy Abx Initial Consult - Date of Service March 15, 2020 - Pharmacy Dosing Scope Date of Consult: 03/15/2020 Consultation requested by: Dr. Strange Pharmacy is consulted to initiate Vancomycin IV dosing therapy, order appropriate labs and adjust drug dose/frequency. - Subjective The patient is a 64 year old M admitted on 03/14/20 17:51. - Objective Height: 5 ft 9 in Weight: 135 kg Vital Signs (Past 12hrs): Vital Signs Temp Pulse Pulse Resp BP Pulse Ox 03/15/20 14:50 36.6 C 81 16 134/66 98 03/15/20 14:40 83 16 154/78 H 98 03/15/20 14:30 83 16 159/72 H 98 03/15/20 14:20 85 16 168/65 H 100 03/15/20 14:13 36.6 C 83 16 174/78 H 100 03/15/20 07:43 36.6 C 58 L 16 145/79 H 97 Lab Results (24hrs): Laboratory Tests (24 Hours) 03/15/20 03/15/20 03/14/20 05:14 05:14 17:10 WBC 8.47 Neut # (Auto) 5.59 ESR Creatinine 1.45 H Est Cr Clr Drug Dosing 69.3 C-Reactive Protein Procalcitonin 0.12 03/14/20 03/14/20 03/14/20 17:10 17:10 17:10 WBC 10.40 Neut # (Auto) 6.99 H ESR 63 H Creatinine 1.54 H Est Cr Clr Drug Dosing 65.3 C-Reactive Protein 11.40 H Procalcitonin Micro Results: 03/15/20 Unknown Gram Stain - Final Knee,Left Aerobic and Anaerobic Culture - Pending 03/15/20 Unknown Gram Stain - Final Knee,Left Aerobic and Anaerobic Culture - Pending 03/15/20 Unknown Gram Stain - Final Knee,Left Aerobic and Anaerobic Culture - Pending 03/15/20 Unknown Gram Stain - Final Knee,Left Aerobic and Anaerobic Culture - Pending 03/15/20 Unknown Gram Stain - Final Knee,Right Aerobic and Anaerobic Culture - Pending 03/15/20 Unknown Gram Stain - Final Knee,Left Aerobic and Anaerobic Culture - Pending - Risk Factors for Resistance * Antimicrobial use within the last 90 days: * Cefadroxil + Doxycycline - Assessment & Plan Assessment 64 year old M admitted secondary to a prosthetic joint infection * Underwent revision of his L TKA on 02/15/2020 and has since noticed drainage. * Underwent I&D of L knee today by Dr. Strange. Intra-op cultures pending. * Afebrile and without leukocytosis. Renal fxn stable but likely falsely elevated secondary to BMI. * ESR & CRP both elevated. * Received cefepime 1 gm and vancomycin 1 gm pre-op as well. Plan Vancomycin + Cefepime for treatment of Prosthetic Joint Infection Vancomycin IV * Estimated PK Parameters: Lauro 0.06 hr-1, t1/2 ~ 11 hrs * Loading dose: 1000 mg pre-op at 1157 - will order 1750 mg x 1 now to equal total load of 2750 mg (~21 mg/kg) * Maintenance dose: 1500 mg IV (11 mg/kg) every 16 hours * Goal trough level: ~15 mcg/mL * Trough level ordered for Tuesday (03/17) prior to 3rd maintenance dose - this will not reflect steady state levels but concerned for sub/supra-therapeutic troughs * A less than traditional dose and extended dosing interval have been selected due to likelihood of drug accumulation in obese patient Cefepime (not a pharmacy consult) * 2 g IV every 8 hours * Appropriate per renal function and indication Pharmacy will continue to follow and will adjust dose/frequency as necessary. Thank you.
[2020-03-15] MEDS: ACETAMINOPHEN 500 MG TAB PO SCH ×2 (16:18→21:32)
[2020-03-15] MEDS: SIMVASTATIN 20 MG TAB PO SCH (20:27)
[2020-03-15] MEDS: SENNA 8.6 MG TAB PO SCH (20:27)
[2020-03-15] MEDS: CEFEPIME 2,000 MG in SYRINGE 7.5 ML IV SCH (20:28)
[2020-03-16] MEDS: CEFEPIME 2,000 MG in SYRINGE 7.5 ML IV SCH ×3 (03:17→21:18)
[2020-03-16] MEDS: OXYCODONE HCL IR 5 MG TAB (IMMEDIATE RELEASE) PO PRN ×5 (03:17→21:18)
[2020-03-16] MEDS: SODIUM CHLORIDE 0.9% 1000ML 1,000 ML IV SCH (03:28)
[2020-03-16] MEDS: LEVOTHYROXINE SODIUM 50 MCG TABLET PO SCH (06:19)
[2020-03-16] MEDS: ACETAMINOPHEN 500 MG TAB PO SCH ×3 (06:19→21:17)
[2020-03-16 06:20] LABS: Hematocrit (blood only) 27.9 % (42-52); Mean Corpuscular Hemoglobin 27.7 pg (25-34); Mean Corpuscular Hgb Conc 32.3 g/dL (32-36); Mean Corpuscular Volume 85.8 fL (80-100); Mean Platelet Volume 8.4 fL (7.4-10.4); Platelet Count 200 K/uL (130-400); RDW Coefficient of Variation 14.7 % (11.5-14.5); RDW Standard Deviation 46.6 fL (36.4-46.3); Red Blood Count 3.25 M/uL (4.7-6.1); White Blood Count 6.36 K/uL (4.8-10.8)
[2020-03-16 06:44] LABS: BUN Creatinine Ratio 17.9 (10-20); Calcium 8.4 mg/dl (8.5-10.1); Creatinine Clr Calc Pharmacy 76.7 ml/min; Est GFR (African American) 65.8; Est GFR (Non-African American) 56.7; Potassium 4.3 mmol/L (3.5-5.1)
[2020-03-16] MEDS: BusPIRone 15 MG TAB PO SCH ×2 (08:50→21:17)
[2020-03-16] MEDS: DOCUSATE SODIUM 100 MG CAP PO SCH ×3 (08:50→21:17)
[2020-03-16] MEDS: ATENOLOL 50 MG TABLET PO SCH (08:51)
[2020-03-16] MEDS: ACETAMINOPHEN 500 MG TAB PO PRN (08:51)
[2020-03-16] MEDS: lisinopriL 20 MG TAB PO SCH (08:52)
[2020-03-16] MEDS: MULTIVITAMIN TAB PO SCH (08:52)
[2020-03-16] MEDS: ASPIRIN 81 MG ECTAB PO SCH ×2 (08:52→21:17)
[2020-03-16] MEDS: allopurinoL 100 MG TAB PO SCH (08:52)
[2020-03-16] MEDS: hydroCHLOROthiazide 25 MG TAB PO SCH (08:52)
[2020-03-16] MEDS: VANCOMYCIN HCL 1,500 MG in SODIUM CHLORIDE 0.9% 500 ML IV SCH ×2 (08:53→11:59)
[2020-03-16] MEDS: ESCITALOPRAM OXALATE 20 MG TAB PO SCH (09:00)
--- NOTE | 2020-03-16 09:16 | Orthopedic Progress Note ---
Date of Service March 16, 2020 Assessment & Plan (1) Infection of total left knee replacement: Status post I&D left total knee with poly-exchange POD#1 -Vancomycin/cefepime, will consult KELLY Day for further recommendations based on cultures, currently growing staph species. -PICC line ordered -DVT prophylaxis: SCDs, teds, ASA twice daily -Weight-bear as tolerates left lower extremity -PT/OT, avoid flexion greater than 80 to 90 degrees, if compliance issue maintain knee immobilizer. -Knee immobilizer in bed -Postoperative x-ray Demonstrates well aligned well fixed total knee prosthesis without evidence of fracture dislocation -A.m. labs, as above hemoglobin 9.0 -Drain output 50/210 -Med recommendations appreciated -Intraoperative cultures growing staph species, sensitivities pending -DC planning Admission and Anticipated Discharge Date Admission Date: March 14, 2020 Subjective Post Operative Progress Note Patient seen sitting in bed at bedside eating breakfast. Patient's knee flex greater than 90 degrees at this time, proximal incision and drain exposed dressing subsided, patient complaining of increased pain, educated patient on importance of avoiding hyperflexion and would like to limit him to no more than 80 to 90 degrees, if this is a problem with compliance I instructed him we would maintain knee immobilizer at all times. Denies F/C/N/V/SOB/CP. Review of Systems Review of Systems: All systems reviewed & are unremarkable except as noted in HPI & below Constitutional: as per Subjective / HPI Physical Exam Physical Exam: LLE NVSI +EHL/FHL/TA/GS SILT grossly, +2 DP pulse, compartments soft NT, dressing cdi. Constitutional: WD/WN, vitals as above Results & Data ([facility]) Vital Signs (Past 12 Hours) Vital Signs Temp Pulse Pulse Resp BP Pulse Ox 03/16/20 07:58 36.8 C 70 16 141/71 H 95 03/16/20 02:40 36.5 C 71 16 130/68 95 03/15/20 23:03 36.8 C 76 18 151/67 H 96 Laboratory Results 03/16/20 03/16/20 Range/Units 06:00 06:00 WBC 6.36 (4.8-10.8) K/uL RBC 3.25 L (4.7-6.1) M/uL Hgb 9.0 L (14.0-18.0) g/dL Hct 27.9 L (42-52) % MCV 85.8 (80-100) fL MCH 27.7 (25-34) pg MCHC 32.3 (32-36) g/dL RDW Std Deviation 46.6 H (36.4-46.3) fL RDW Coeff of Colt 14.7 H (11.5-14.5) % Plt Count 200 (130-400) K/uL MPV 8.4 (7.4-10.4) fL Sodium 136 (136-145) mmol/L Potassium 4.3 (3.5-5.1) mmol/L Chloride 104 (98-107) mmol/L Carbon Dioxide 28 (21-32) mmol/L Anion Gap 4.0 (3-11) BUN 23 H (7-18) mg/dl Creatinine 1.31 (0.6-1.4) mg/dl Est Cr Clr Drug Dosing 76.7 ml/min Est GFR ( Amer) 65.8 Est GFR (Non-Af Amer) 56.7 BUN/Creatinine Ratio 17.9 (10-20) Glucose 105 H (70-99) mg/dl Calcium 8.4 L (8.5-10.1) mg/dl
[2020-03-16] MEDS ORDERED: VANCOMYCIN HCL 1,500 MG in SODIUM CHLORIDE 0.9% 500 ML IV SCH (12:00)
--- NOTE | 2020-03-16 13:18 | Hospitalist Progress Note ---
Date of Service March 16, 2020 Assessment & Plan (1) Infection of total left knee replacement: Admission under orthopedics for I&D with poly exchange on 03/[address] Strange. - Pain control per surgery - Discussed with Dr. Strange today. Cultures taken. - Agree with vanc/cefepime for now. -> Adjust as needed. - Barb ID consulted for tomorrow. - Defer post op DVT prophylaxis to orthopedics - ASA BID (2) CKD (chronic kidney disease) stage 3, GFR 30-59 ml/min: Unclear if current Cr is actually his baseline or not, but Cr stable x 2 days at ~1.5, eGFR ~45. - Avoid nephrotoxins as able - Monitor Cr while on abx -> Cr at 1.3 today. (3) Hypothyroid: Patient reports well controlled for years. - Continue levothyroxine 50 mcg PO daily (4) Hypertension: BP presently 135/70. - Continue atenolol, HCTZ, and lisinopril - Will monitor Cr -> If up-trending will likely stop ACEi and HCTZ. (5) High cholesterol: - Continue simvastatin (6) Depression: - Continue Lexapro 20mg PO daily (7) Anxiety: - Continue Buspar 30mg PO BID (8) DVT prophylaxis: ASA BID & SCDs - Per primary team Admission and Anticipated Discharge Date Admission Date: March 14, 2020 Subjective Having some left knee pain after surgery, but otherwise in good spirits. Reports no fevers/chills, chest pain, shortness of breath, abdominal pain, nausea, or vomiting. Physical Exam Constitutional: WD/WN, vitals as above Eyes: EOM intact bilaterally; no conjunctival abnormality ENMT: external ear and nose normal, oropharynx normal Neck: trachea midline, no thyromegaly normal visual inspection Respiratory: normal respiratory effort, lungs clear to auscultation no respiratory distress Cardiovascular: RRR, no murmur, no edema Gastrointestinal (Abdomen): Inspection/Auscultation: abdomen normal to inspection; abdomen not distended Musculoskeletal: Extremities: + extremities abnormal to inspection (Left knee in brace) Skin: no rashes, warm and dry Neurologic: moves all extremities and awake Psychiatric: Orientation: alert, oriented to person and cooperative Results & Data Results & Data ([facility]) Vital Signs (Past 12 Hours) Vital Signs Temp Pulse Pulse Resp BP Pulse Ox 08/09/20 11:09 36.6 C 64 18 136/72 97 03/16/20 07:58 36.8 C 70 16 141/71 H 95 03/16/20 02:40 36.5 C 71 16 130/68 95 PG Care Time/CCT Total # of Minutes Spent Total Time Spent with Patient: Total time spent is greater than 50% in coordination of care (as documented) at patient's floor/unit and/or counseling patient: Coding Level of Care Code 77373 Subseq Hosp Care Lvl 2 Diagnoses Infection of total left knee replacement T84.54XA CKD (chronic kidney disease) stage 3, GFR 30-59 ml/min N18.3 Hypothyroid E03.9 Hypertension I10 High cholesterol E78.00 Depression F32.9 Anxiety F41.9 DVT prophylaxis Z29.9
--- NOTE | 2020-03-16 14:45 | Pharmacy Report ---
Pharmacy Abx Dose Short Note - Date of Service March 16, 2020 - Assessment & Plan Assessment 64 year old M admitted secondary to a prosthetic joint infection * Underwent revision of his L TKA on 02/15/2020 and has since noticed drainage. * Underwent I&D of L knee today by Dr. Strange. Intra-op cultures all growing Staph species. * Afebrile and without leukocytosis. Given improvement in renal fxn, will adjust dosing interval and trough. Plan Vancomycin * Change to 1500 mg IV every 12 hours * Goal trough level: ~15 mcg/mL * Trough level ordered for Tuesday (03/17) at 1130. This will be prior to steady state but want to ensure patient is not sub-/supra-therapeutic. Pharmacy will continue to follow and will adjust dose/frequency as necessary. Thank you.
[2020-03-16] MEDS: SENNA 8.6 MG TAB PO SCH (21:17)
[2020-03-16] MEDS: SIMVASTATIN 20 MG TAB PO SCH (21:17)
[2020-03-17] MEDS ORDERED: VANCOMYCIN HCL 1,500 MG in SODIUM CHLORIDE 0.9% 500 ML IV SCH
[2020-03-17] MEDS: OXYCODONE HCL IR 5 MG TAB (IMMEDIATE RELEASE) PO PRN ×3 (03:00→20:33)
[2020-03-17] MEDS: CEFEPIME 2,000 MG in SYRINGE 7.5 ML IV SCH (03:23)
[2020-03-17] MEDS: LEVOTHYROXINE SODIUM 50 MCG TABLET PO SCH (05:54)
[2020-03-17] MEDS: ACETAMINOPHEN 500 MG TAB PO SCH ×3 (05:54→21:34)
[2020-03-17 06:17] LABS: Hematocrit (blood only) 26.6 % (42-52); Hemoglobin 8.5 g/dL (14.0-18.0); Mean Corpuscular Hemoglobin 27.6 pg (25-34); Mean Corpuscular Volume 86.4 fL (80-100); Mean Platelet Volume 8.5 fL (7.4-10.4); Platelet Count 216 K/uL (130-400); RDW Coefficient of Variation 14.8 % (11.5-14.5); RDW Standard Deviation 46.2 fL (36.4-46.3); Red Blood Count 3.08 M/uL (4.7-6.1); White Blood Count 7.31 K/uL (4.8-10.8)
[2020-03-17 06:50] LABS: BUN Creatinine Ratio 14.7 (10-20); C Reactive Protein 14.4 mg/dl (0-0.29); Calcium 8.8 mg/dl (8.5-10.1); Creatinine Clr Calc Pharmacy 75.5 ml/min; Est GFR (African American) 64.6; Est GFR (Non-African American) 55.7; Magnesium 1.9 mg/dl (1.8-2.4); Potassium 4.2 mmol/L (3.5-5.1)
[2020-03-17] MEDS: MULTIVITAMIN TAB PO SCH (08:46)
[2020-03-17] MEDS: lisinopriL 20 MG TAB PO SCH (08:46)
[2020-03-17] MEDS: ATENOLOL 50 MG TABLET PO SCH (08:46)
[2020-03-17] MEDS: DOCUSATE SODIUM 100 MG CAP PO SCH ×2 (08:46→20:35)
[2020-03-17] MEDS: ASPIRIN 81 MG ECTAB PO SCH ×2 (08:46→20:34)
[2020-03-17] MEDS: hydroCHLOROthiazide 25 MG TAB PO SCH (08:46)
[2020-03-17] MEDS: BusPIRone 15 MG TAB PO SCH ×2 (08:46→20:34)
[2020-03-17] MEDS: ESCITALOPRAM OXALATE 20 MG TAB PO SCH (08:47)
[2020-03-17] MEDS: allopurinoL 100 MG TAB PO SCH (08:47)
--- NOTE | 2020-03-17 08:56 | Hospitalist Progress Note ---
Date of Service March 17, 2020 Assessment & Plan (1) Infection of total left knee replacement: * POD #2 s/p LEFT KNEE I&D with poly exchange on 03/[address] Strange. EBL 150mL. Pre-op h/h 10.8/33.5. Hemovac with 210cc output reported * PT/OT/pain management/DVT prophylaxis per primary service * ID consulted -- awaiting consultation today * Initially on Vanco/Cefepime --> cultures with MRSA --> transitioned to Daptomycin given BMI (will need weekly labs and his statin held while on Dapto) ESR 51 (down from 63), C-RP 14.4 (up from 11.4). CPK added to AM labs Will also need rifampin BID and patient will need follow up with ID in 4 weeks. Will likely need chronic immunosuppression with clinda/rifampin after IV abx completed * PICC line already in place. CM to assist with arranging abx at discharge * H/h on AM labs down to 8.5/26.6. Will also add iron studies as patient with anemia back to October 2018 although likely anemia of chronic disease * CBC in AM (2) CKD (chronic kidney disease) stage 3, GFR 30-59 ml/min: * Cr 1.54 on 03/14 -- Unclear if current Cr is actually his baseline or not. ~eGFR 55 * Avoid nephrotoxins as able, renally dose medications when able * Cr stable at 1.33 today -- will need outpatient follow-up with PCP * Continue to monitor (3) Hypothyroid: * Patient reports well controlled for years. * Continue levothyroxine 50 mcg PO daily (4) Hypertension: * Chronic. Well controlled, currently 115/65 * Continue home atenolol 50mg , HCTZ 25mg, lisinopril 20mg (would continue to monitor Cr and d/c FIORELLA/HCTZ if needed) * Continue to monitor (5) High cholesterol: * Chronic --> will need to hold simvastatin while on Daptomycin (6) Depression: * Chronic. Continue Lexapro 20mg PO daily (7) Anxiety: * Chronic. Continue Buspar 30mg PO BID (8) DVT prophylaxis: * ASA BID & SCDs - Per primary team Thank you for allowing hospitalist team to participate in the care of Mr. Oviedo. Hospitalist service will follow along. Admission and Anticipated Discharge Date Admission Date: March 14, 2020 Supervising Physician Co-Signing Physician Notes PA Supervision Note: I did not personally see or examine the patient today, but I verified all orta points of TREMAYNE Da Silva's assessment and plan with the following exceptions/additions: None Subjective Patient evaluated this morning. Pain present, but tolerable with oral pain medications. States the pain decreases daily. Eating/drinking without difficulty. Urinating without problem. Passing gas. Had been up with therapy. Discussed findings of culture and that patient awaiting ID consultation later this morning. Likely will be able to transition to single agent and that patient would need PICC line (which had already been placed LUE). Patient hopeful for discharge tomorrow if arrangements made for rehab and antibiotics. States he had previously talked to CM at some point regarding options and that he was hopeful for rehab through [facility] in [place]. Denies any fevers, chills, chest pain, shortness of breath, nausea, vomiting, dysuria at this time. Review of Systems Review of Systems: All systems reviewed & are unremarkable except as noted in HPI & below Physical Exam Constitutional: WD/WN, vitals as above Eyes: EOM intact bilaterally; no conjunctival abnormality Neck: trachea midline, no thyromegaly normal visual inspection Respiratory: normal respiratory effort, lungs clear to auscultation no respiratory distress Cardiovascular: Rate/Rhythm: regular rate and regular rhythm Heart Sounds: no murmur and no cardiac rub Extremities: + edema (1+ pitting edema LUE); no calf tenderness 2+ pulses pt, dp bilaterally Gastrointestinal (Abdomen): Inspection/Auscultation: abdomen normal to inspection; abdomen not distended Musculoskeletal: Extremities: + extremities abnormal to inspection (Left knee in brace (dressing recently changed, now c/d/i)) Hemovac with scant bloody drainage noted NVI intact calves non-tender Skin: no rashes, warm and dry LUE with PICC line Neurologic: moves all extremities and awake Psychiatric: Orientation: alert, oriented to person and cooperative Lymphatic: no cervical or axillary lymphadenopathy Results & Data Results & Data ([facility]) Vital Signs (Past 12 Hours) Vital Signs Temp Pulse Pulse Resp BP Pulse Ox 03/17/20 07:15 37 C 65 18 115/65 93 03/17/20 06:06 36.8 C 65 18 94 03/16/20 23:15 37 C 76 18 143/67 H 96 Laboratory Results 03/17/20 03/17/20 03/17/20 Range/Units 05:51 05:51 05:51 WBC 7.31 (4.8-10.8) K/uL RBC 3.08 L (4.7-6.1) M/uL Hgb 8.5 L (14.0-18.0) g/dL Hct 26.6 L (42-52) % MCV 86.4 (80-100) fL MCH 27.6 (25-34) pg MCHC 32.0 (32-36) g/dL RDW Std Deviation 46.2 (36.4-46.3) fL RDW Coeff of Colt 14.8 H (11.5-14.5) % Plt Count 216 (130-400) K/uL MPV 8.5 (7.4-10.4) fL ESR 51 H (0-14) mm/hr Sodium 134 L (136-145) mmol/L Potassium 4.2 (3.5-5.1) mmol/L Chloride 102 (98-107) mmol/L Carbon Dioxide 25 (21-32) mmol/L Anion Gap 7.0 (3-11) BUN 20 H (7-18) mg/dl Creatinine 1.33 (0.6-1.4) mg/dl Est Cr Clr Drug Dosing 75.5 ml/min Est GFR ( Amer) 64.6 Est GFR (Non-Af Amer) 55.7 BUN/Creatinine Ratio 14.7 (10-20) Glucose 97 (70-99) mg/dl Calcium 8.8 (8.5-10.1) mg/dl Magnesium 1.9 (1.8-2.4) mg/dl C-Reactive Protein 14.40 H (0-0.29) mg/dl PG Care Time/CCT Total # of Minutes Spent Total Time Spent with Patient: Total time spent is greater than 50% in coordination of care (as documented) at patient's floor/unit and/or counseling patient: Coding Level of Care Code 60945 Subseq Hosp Care Lvl 3 Diagnoses Infection of total left knee replacement T84.54XA CKD (chronic kidney disease) stage 3, GFR 30-59 ml/min N18.3 Hypothyroid E03.9 Hypertension I10 High cholesterol E78.00 Depression F32.9 Anxiety F41.9 DVT prophylaxis Z29.9
[2020-03-17] MEDS ORDERED: DAPTOMYCIN CONSULT ACTIVE PRN (09:49)
[2020-03-17] MEDS ORDERED: DAPTOmycin 600 MG in SYRINGE 0 ML IV SCH (10:00)
[2020-03-17] MEDS ORDERED: VANCOMYCIN TROUGH ONE ×3 (11:30→19:30)
[2020-03-17] MEDS ORDERED: DAPTOmycin 400 MG in SYRINGE 0 ML IV ONE (13:15)
--- NOTE | 2020-03-17 19:36 | Orthopedic Progress Note ---
Date of Service March 17, 2020 Assessment & Plan (1) Infection of total left knee replacement: Status post I&D left total knee with poly-exchange POD#2 -ID recs appreciated, IV abx switched to daptomycin and rifampin, will need 6 weeks IV abx, picc in place, followed by chronic suppression -DVT prophylaxis: SCDs, teds, ASA twice daily -Weight-bear as tolerates left lower extremity -PT/OT, avoid flexion greater than 80 to 90 degrees, if compliance issue maintain knee immobilizer. -Knee immobilizer in bed -Postoperative x-ray Demonstrates well aligned well fixed total knee prosthesis without evidence of fracture dislocation -A.m. labs, as above hemoglobin 8.3 -Drain DC'd secondary to loosing suction -Med recommendations appreciated -Intraoperative cultures growing MRSA -DC planning POD#1 -Vancomycin/cefepime, will consult KELLY Day for further recommendations based on cultures, currently growing staph species. -PICC line ordered -DVT prophylaxis: SCDs, teds, ASA twice daily -Weight-bear as tolerates left lower extremity -PT/OT, avoid flexion greater than 80 to 90 degrees, if compliance issue maintain knee immobilizer. -Knee immobilizer in bed -Postoperative x-ray Demonstrates well aligned well fixed total knee prosthesis without evidence of fracture dislocation -A.m. labs, as above hemoglobin 9.0 -Drain output 50/210 -Med recommendations appreciated -Intraoperative cultures growing staph species, sensitivities pending -DC planning Admission and Anticipated Discharge Date Admission Date: March 14, 2020 Subjective Post Operative Progress Note Patient seen sitting up in bed, comfortable, denies complaints, pain well controlled, no acute issues. Denies F/C/N/V/SOB/CP. Review of Systems Review of Systems: All systems reviewed & are unremarkable except as noted in HPI & below Constitutional: as per Subjective / HPI Physical Exam Physical Exam: LLE NVSI +EHL/FHL/TA/GS SILT grossly, +2 DP pulse, compartments soft NT, dressing cdi. KI in place Constitutional: WD/WN, vitals as above Results & Data ([facility]) Vital Signs (Past 12 Hours) Vital Signs Temp Pulse Resp BP Pulse Ox 03/17/20 15:14 36.7 C 65 16 113/61 94 Laboratory Results 03/17/20 03/17/20 03/17/20 Range/Units 12:25 12:25 05:51 WBC 7.31 (4.8-10.8) K/uL RBC 3.08 L (4.7-6.1) M/uL Hgb 8.5 L (14.0-18.0) g/dL Hct 26.6 L (42-52) % MCV 86.4 (80-100) fL MCH 27.6 (25-34) pg MCHC 32.0 (32-36) g/dL RDW Std Deviation 46.2 (36.4-46.3) fL RDW Coeff of Colt 14.8 H (11.5-14.5) % Plt Count 216 (130-400) K/uL MPV 8.5 (7.4-10.4) fL ESR (0-14) mm/hr Sodium (136-145) mmol/L Potassium (3.5-5.1) mmol/L Chloride (98-107) mmol/L Carbon Dioxide (21-32) mmol/L Anion Gap (3-11) BUN (7-18) mg/dl Creatinine (0.6-1.4) mg/dl Est Cr Clr Drug Dosing ml/min Est GFR ( Amer) Est GFR (Non-Af Amer) BUN/Creatinine Ratio (10-20) Glucose (70-99) mg/dl Calcium (8.5-10.1) mg/dl Magnesium (1.8-2.4) mg/dl C-Reactive Protein (0-0.29) mg/dl COVID-19 Eval Order Covid19 Done at [facility] COVID-19 PCR NEGATIVE (Negative) 03/17/20 03/17/20 Range/Units 05:51 05:51 WBC (4.8-10.8) K/uL RBC (4.7-6.1) M/uL Hgb (14.0-18.0) g/dL Hct (42-52) % MCV (80-100) fL MCH (25-34) pg MCHC (32-36) g/dL RDW Std Deviation (36.4-46.3) fL RDW Coeff of Colt (11.5-14.5) % Plt Count (130-400) K/uL MPV (7.4-10.4) fL ESR 51 H (0-14) mm/hr Sodium 134 L (136-145) mmol/L Potassium 4.2 (3.5-5.1) mmol/L Chloride 102 (98-107) mmol/L Carbon Dioxide 25 (21-32) mmol/L Anion Gap 7.0 (3-11) BUN 20 H (7-18) mg/dl Creatinine 1.33 (0.6-1.4) mg/dl Est Cr Clr Drug Dosing 75.5 ml/min Est GFR ( Amer) 64.6 Est GFR (Non-Af Amer) 55.7 BUN/Creatinine Ratio 14.7 (10-20) Glucose 97 (70-99) mg/dl Calcium 8.8 (8.5-10.1) mg/dl Magnesium 1.9 (1.8-2.4) mg/dl C-Reactive Protein 14.40 H (0-0.29) mg/dl COVID-19 Eval Order COVID-19 PCR (Negative)
[2020-03-17] MEDS: SENNA 8.6 MG TAB PO SCH (20:34)
[2020-03-17] MEDS ORDERED: rifAMPin 300 MG CAPSULE PO SCH (21:00)
[2020-03-17] MEDS: rifAMPin 300 MG CAPSULE PO SCH (21:34)
[2020-03-18] MEDS: OXYCODONE HCL IR 5 MG TAB (IMMEDIATE RELEASE) PO PRN ×2 (05:18→11:18)
[2020-03-18] MEDS: LEVOTHYROXINE SODIUM 50 MCG TABLET PO SCH (06:07)
[2020-03-18] MEDS: ACETAMINOPHEN 500 MG TAB PO SCH (06:07)
[2020-03-18 06:08] LABS: Basophils # (auto) 0.01 K/uL (0-0.2); Basophils % (auto) 0.1 %; Eosinophils # (auto) 0.85 K/uL (0-0.5); Eosinophils % (auto) 12.1 %; Hemoglobin 8.9 g/dL (14.0-18.0); Immature Granulocytes # (auto) 0.04 K/uL (0.00-0.02); Immature Granulocytes % (auto) 0.6 %; Lymphocytes # (auto) 0.64 K/uL (1.2-3.4); Lymphocytes % (auto) 9.1 %; Mean Corpuscular Hemoglobin 27.8 pg (25-34); Mean Corpuscular Volume 84.4 fL (80-100); Mean Platelet Volume 8.4 fL (7.4-10.4); Monocytes # (auto) 0.92 K/uL (0.11-0.59); Monocytes % (auto) 13.1 %; Neutrophils # (auto) 4.57 K/uL (1.4-6.5); Platelet Count 214 K/uL (130-400); RDW Coefficient of Variation 14.5 % (11.5-14.5); RDW Standard Deviation 45.6 fL (36.4-46.3); White Blood Count 7.03 K/uL (4.8-10.8)
[2020-03-18 06:43] LABS: BUN Creatinine Ratio 14.7 (10-20); Calcium 8.4 mg/dl (8.5-10.1); Creatinine Clr Calc Pharmacy 100.4 ml/min; Est GFR (African American) 91.1; Est GFR (Non-African American) 78.6; Potassium 3.8 mmol/L (3.5-5.1)
[2020-03-18 06:51] LABS: C Reactive Protein 13.9 mg/dl (0-0.29); Ferritin 419.6 ng/ml (8-388)
[2020-03-18] MEDS ORDERED: bisacodyL 10 MG SUPP PR STA (08:40)
--- NOTE | 2020-03-18 08:43 | Hospitalist Progress Note ---
Date of Service March 18, 2020 Assessment & Plan (1) Infection of total left knee replacement: * POD #3 s/p LEFT KNEE I&D with poly exchange on 03/[address] Strange. EBL 150mL. Pre-op h/h 10.8/33.5. Hemovac with 210cc output reported * PT/OT/pain management/DVT prophylaxis per primary service * ID consulted -- awaiting consultation today * Initially on Vanco/Cefepime --> cultures with MRSA --> transitioned to Daptomycin (on 03/17) given BMI (will need weekly labs and his statin held while on Dapto) * Per ID Rec's --> Dapto 1000mg IV daily for 6 weeks with rifampin 300mg BID -- likely need chronic immunosuppression with clinda/rifampin after IV abx completed. Follow up with ID in four weeks. PICC line already in place. CM to assist with arranging abx at discharge * CPK 82, CRP 13.9, ESR 51 --> will need these labs weekly with CBC, CMP * H/h improved on AM labs -- 8.9/27 from 8.5/26.6. Iron studies --> iron low at 18, TIBC 186L, transferrin 142L, transferrin % sat 9%L, ferritin elevated at 419 (likely acute phase reactant) Started on oral supplementation -- > to be continued at discharge (2) CKD (chronic kidney disease) stage 3, GFR 30-59 ml/min: * Cr 1.54 on 03/14 -- Unclear if current Cr is actually his baseline or not. ~eGFR 55 * Avoid nephrotoxins as able, renally dose medications when able * Cr improved to 1.0 today -- will need outpatient follow-up with PCP outpatient (3) Hypothyroid: * Patient reports well controlled for years. * Continue levothyroxine 50 mcg PO daily (4) Hypertension: * Chronic. Well controlled, currently 131/63 * Continue home atenolol 50mg , HCTZ 25mg, lisinopril 20mg (5) High cholesterol: * Chronic --> now holding home simvastatin while on Daptomycin. * Will need to continue to be held while on Dapto (6) Depression: * Chronic. Continue Lexapro 20mg PO daily (7) Anxiety: * Chronic. Continue Buspar 30mg PO BID (8) DVT prophylaxis: * ASA BID & SCDs - Per primary team Giving Dulcolax enema this AM to see if pt able to have BM prior to discharge. COVID testing NEGATIVE Thank you for allowing hospitalist team to participate in the care of Mr. Oviedo. Plan for discharge to [facility] this afternoon for rehab. Admission and Anticipated Discharge Date Admission Date: March 14, 2020 Supervising Physician Co-Signing Physician Notes PA Supervision Note: I did not personally see or examine the patient today, but I verified all orta points of TREMAYNE Da Silva's assessment and plan with the following exceptions/additions: None Subjective Patient evaluated this morning. Pain controlled with medication. Eating/drinking without difficulty. He does note that he has not had a bowel movement since Tuesday. Denies fevers, chills, chest pain, shortness of breath, abdominal pain, nausea, vomiting, dysuria at this time. Review of Systems Review of Systems: All systems reviewed & are unremarkable except as noted in HPI & below Physical Exam Constitutional: WD/WN, vitals as above Eyes: EOM intact bilaterally; no conjunctival abnormality Neck: trachea midline, no thyromegaly normal visual inspection Respiratory: normal respiratory effort, lungs clear to auscultation no respiratory distress Cardiovascular: Rate/Rhythm: regular rate and regular rhythm Heart Sounds: no murmur and no cardiac rub Extremities: + edema (trace edema LLE); no calf tenderness Gastrointestinal (Abdomen): Inspection/Auscultation: abdomen normal to inspection; abdomen not distended Musculoskeletal: Extremities: + extremities abnormal to inspection (Left knee in brace (dressing recently changed, now c/d/i)) Skin: no rashes, warm and dry Neurologic: moves all extremities and awake Psychiatric: Orientation: alert, oriented to person and cooperative Lymphatic: no cervical or axillary lymphadenopathy Results & Data Results & Data ([facility]) Vital Signs (Past 12 Hours) Vital Signs Temp Pulse Pulse Resp BP Pulse Ox 03/18/20 07:38 37.2 C 77 18 131/63 96 03/17/20 23:05 37.1 C 68 20 148/70 H 95 Laboratory Results 03/18/20 03/18/20 03/17/20 Range/Units 05:46 05:46 12:25 WBC 7.03 (4.8-10.8) K/uL RBC 3.20 L (4.7-6.1) M/uL Hgb 8.9 L (14.0-18.0) g/dL Hct 27.0 L (42-52) % MCV 84.4 (80-100) fL MCH 27.8 (25-34) pg MCHC 33.0 (32-36) g/dL RDW Std Deviation 45.6 (36.4-46.3) fL RDW Coeff of Colt 14.5 (11.5-14.5) % Plt Count 214 (130-400) K/uL MPV 8.4 (7.4-10.4) fL Immature Gran % (Auto) 0.6 % Neut % (Auto) 65.0 % Lymph % (Auto) 9.1 % Woodson % (Auto) 13.1 % Eos % (Auto) 12.1 % Baso % (Auto) 0.1 % Neut # (Auto) 4.57 (1.4-6.5) K/uL Lymph # (Auto) 0.64 L (1.2-3.4) K/uL Woodson # (Auto) 0.92 H (0.11-0.59) K/uL Eos # (Auto) 0.85 H (0-0.5) K/uL Baso # (Auto) 0.01 (0-0.2) K/uL Immature Gran # (Auto) 0.04 H (0.00-0.02) K/uL Sodium 138 (136-145) mmol/L Potassium 3.8 (3.5-5.1) mmol/L Chloride 105 (98-107) mmol/L Carbon Dioxide 27 (21-32) mmol/L Anion Gap 6.0 (3-11) BUN 15 (7-18) mg/dl Creatinine 1.00 D (0.6-1.4) mg/dl Est Cr Clr Drug Dosing 100.4 ml/min Est GFR ( Amer) 91.1 Est GFR (Non-Af Amer) 78.6 BUN/Creatinine Ratio 14.7 (10-20) Glucose 105 H (70-99) mg/dl Calcium 8.4 L (8.5-10.1) mg/dl Iron 18 L (35-175) mcg/dl TIBC 186 L (250-450) mcg/dl Transferrin 142 L (200-360) mg/dl Transferrin % Sat 9 L (20-50) % Ferritin 419.6 H (8-388) ng/ml Total Creatine Kinase 82 (39-308) U/L C-Reactive Protein 13.90 H (0-0.29) mg/dl COVID-19 Eval Order COVID-19 PCR NEGATIVE (Negative) 03/17/20 Range/Units 12:25 WBC (4.8-10.8) K/uL RBC (4.7-6.1) M/uL Hgb (14.0-18.0) g/dL Hct (42-52) % MCV (80-100) fL MCH (25-34) pg MCHC (32-36) g/dL RDW Std Deviation (36.4-46.3) fL RDW Coeff of Colt (11.5-14.5) % Plt Count (130-400) K/uL MPV (7.4-10.4) fL Immature Gran % (Auto) % Neut % (Auto) % Lymph % (Auto) % Woodson % (Auto) % Eos % (Auto) % Baso % (Auto) % Neut # (Auto) (1.4-6.5) K/uL Lymph # (Auto) (1.2-3.4) K/uL Woodson # (Auto) (0.11-0.59) K/uL Eos # (Auto) (0-0.5) K/uL Baso # (Auto) (0-0.2) K/uL Immature Gran # (Auto) (0.00-0.02) K/uL Sodium (136-145) mmol/L Potassium (3.5-5.1) mmol/L Chloride (98-107) mmol/L Carbon Dioxide (21-32) mmol/L Anion Gap (3-11) BUN (7-18) mg/dl Creatinine (0.6-1.4) mg/dl Est Cr Clr Drug Dosing ml/min Est GFR ( Amer) Est GFR (Non-Af Amer) BUN/Creatinine Ratio (10-20) Glucose (70-99) mg/dl Calcium (8.5-10.1) mg/dl Iron (35-175) mcg/dl TIBC (250-450) mcg/dl Transferrin (200-360) mg/dl Transferrin % Sat (20-50) % Ferritin (8-388) ng/ml Total Creatine Kinase (39-308) U/L C-Reactive Protein (0-0.29) mg/dl COVID-19 Eval Order Covid19 Done at [facility] COVID-19 PCR (Negative) PG Care Time/CCT Total # of Minutes Spent Total Time Spent with Patient: Total time spent is greater than 50% in coord ination of care (as documented) at patient's floor/unit and/or counseling patient: Coding Level of Care Code 08260 Subseq Hosp Care Lvl 3 Diagnoses Infection of total left knee replacement T84.54XA CKD (chronic kidney disease) stage 3, GFR 30-59 ml/min N18.3 Hypothyroid E03.9 Hypertension I10 High cholesterol E78.00 Depression F32.9 Anxiety F41.9 DVT prophylaxis Z29.9
[2020-03-18] MEDS ORDERED: FERROUS SULFATE 325 MG TAB PO SCH (09:00)
[2020-03-18] MEDS: rifAMPin 300 MG CAPSULE PO SCH (09:07)
[2020-03-18] MEDS: ASPIRIN 81 MG ECTAB PO SCH (09:07)
[2020-03-18] MEDS: DOCUSATE SODIUM 100 MG CAP PO SCH (09:07)
[2020-03-18] MEDS: ESCITALOPRAM OXALATE 20 MG TAB PO SCH (09:07)
[2020-03-18] MEDS: lisinopriL 20 MG TAB PO SCH (09:07)
[2020-03-18] MEDS: BusPIRone 15 MG TAB PO SCH (09:07)
[2020-03-18] MEDS: ATENOLOL 50 MG TABLET PO SCH (09:08)
[2020-03-18] MEDS: allopurinoL 100 MG TAB PO SCH (09:08)
[2020-03-18] MEDS: MULTIVITAMIN TAB PO SCH (09:08)
[2020-03-18] MEDS: hydroCHLOROthiazide 25 MG TAB PO SCH (09:08)
--- NOTE | 2020-03-18 09:24 | Orthopedic Progress Note ---
Date of Service March 18, 2020 Assessment & Plan (1) Infection of total left knee replacement: Status post I&D left total knee with poly-exchange POD#3 -ID recs appreciated, IV abx switched to daptomycin and rifampin, will need 6 weeks IV abx, picc in place, followed by chronic suppression. Meds placed in DC section. -DVT prophylaxis: SCDs, teds, ASA twice daily -Weight-bear as tolerates left lower extremity -PT/OT, avoid flexion greater than 80 to 90 degrees, if compliance issue main tain knee immobilizer. -Knee immobilizer in bed -Postoperative x-ray Demonstrates well aligned well fixed total knee prosthesis without evidence of fracture dislocation -A.m. labs, as above hemoglobin 8.9 -Med recommendations appreciated -Intraoperative cultures growing MRSA -DC planning - DC /transfer to [facility] re[facility] today. Admission and Anticipated Discharge Date Admission Date: March 14, 2020 Supervising Physician Co-Signing Physician Notes Patient seen and examined, agree with above assessment and plan. Subjective POD 3 Pt lying in bed. No complaints this AM. Comfortable. Pain controlled. Review of Systems Review of Systems: All systems reviewed & are unremarkable except as noted in HPI & below Constitutional: as per Subjective / HPI Physical Exam Physical Exam: Incision is C/D/I. Calves soft, NT. NV intact. Toes mobile. Results & Data ([facility]) Vital Signs (Past 12 Hours) Vital Signs Temp Pulse Pulse Resp BP Pulse Ox 03/18/20 07:38 37.2 C 77 18 131/63 96 03/17/20 23:05 37.1 C 68 20 148/70 H 95
[2020-03-18] MEDS ORDERED: DAPTOmycin 1,000 MG in SYRINGE 0 ML IV SCH (11:00)
--- NOTE | 2020-03-18 22:55 | Discharge Summary ---
Date of Service March 18, 2020 Admission HPI Per Admitting Provider The patient is a 64 year male who has significant PSHx for revision L TKA by Dr. Mullins on 02/15/20. His post operative course was relatively uneventful however on 03/07/20, the patient reported drainage from the inferior aspect of his incision. He was seen by Dr. Mullins on 03/11/2020 and 03/14/20 in the office and sent to [facility] for I+D of left TKA secondary to persistent drainage, surgical site infection. Denies F/C/N/V/SOB/CP. Principal Diagnosis Irrigation and debridement of left total knee, polyethylene liner exchange -Left knee adalid-prosthetic joint infection Discharge Exam LLE NVSI +EHL/FHL/TA/GS SILT grossly, +2 DP pulse, compartments soft NT, dressing cdi. Constitutional WD/WN, vitals as above Discharge Data Allergies Allergy/AdvReac Type Severity Reaction Status Date / Time No Known Allergies Allergy Unverified 03/14/20 18:21 Consultations 03/14/20 17:05 Consult Orthopedic Surgery Stat 03/14/20 17:54 Consult Case Management - Discharge Planning Routine Consult Internal Medicine Routine 03/14/20 18:06 ED Decision to Admit Stat 03/15/20 15:10 Consult Case Management - Discharge Planning Routine 03/16/20 09:18 Consult Infectious Diseases Routine Procedures Performed Operation Date: 03/15/20 09:10 Actual Procedures p with Poly Exchange(Left) - Jason Strange DO s Incision and Drainage Left Total Knee(Left) - Jason Strange DO Hospital Course (1) Infection of total left knee replacement: The patient is a 64-year-old male with 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 I discussed the case with the patient's primary surgeon Dr. Mullins in detail. Due to unavailability to care for the patient at this time we will proceed with irrigation debridement of left total knee with poly-exchange. Dr. Mullins will follow up with the patient postoperatively. I have indicated the patient for irrigation debridement of left total knee with poly-exchange, the risk, benefits, complications alternatives to the procedure were explained to the patient detail which include however not limited to persistent or recurrent infections, acute blood loss, blood clots, injury to surrounding nerves, bone, vessels, soft tissue, arthrofibrosis, chronic pain, failure of the prosthesis, dislocation of the joint, limb length discrepancies, need for additional surgery, sepsis, loss of limb and loss of life. Alternati ves include no surgery which would result and persistent and worsening infection symptoms and sepsis and . The patient wished to proceed with surgery at this time and informed sent was obtained. Hospital Course: On 03/15/20 the patient was taken to the operating room, adequate anesthesia administered and underwent a irrigation and debridement of left total knee, polyethylene liner exchange. The patient tolerated the procedure well and was taken to the PACU in stable condition. Post-operatively the patient was started on a DVT ppx medication and given appropriate IV antibiotics. Consults were placed to medical hospitalist, physical therapy, occupational therapy and case management. On POD#1, the patient did well overnight and their pain was well controlled. Labs were drawn and the Hgb was 9.0. The patient participated with PT. Dressings were changed at this time and the incision was clean, dry and intact. Intra-operative cultures growing staph species x 6. On POD#2, the patient did well overnight and pain much improved. Drain had lost suction and was DC'd. Intra- operative culture sensitivities + for MRSA. Infectious disease consultation placed, patient IV abx switched to Daptomycin and Rifampin. The patient progressed with PT and PICC line was placed. Labs were drawn, hgb 8.3. On, POD#3, the patient did well overnight and progressed with PT. Labs were drawn, hgb 8.9. Patient tolerating current IV abx regimen, will continue for 6 weeks IV abx followed by chronic suppression per ID recommendations. The patient was deemed stable by the orthopedic team and consultants to be discharged to [place] rehab facility on 03/18/20. Discharge Instructions: Upon discharge the patient may weight bear as tolerates through their operative extremity. They were instructed to keep the incision clean and dry at all times. The patient may shower but should not submerge the incision, avoid bathing, pools and hot tubes. Maintain KI while in bed. The patient was given a script for pain medication and should take as instructed. The patient was given a script for DVT ppx ASA BID and should take as directed. The patient was instructed to not drive or travel for long distances until cleared to do so. If the patient develops any symptoms of fevers, chills, nausea, vomiting, increased redness, swelling, pain or drainage from the surgical site, they should notify the office and/or proceed to the nearest emergency room. The patient should follow up in 10-14 days after surgery for their routine post-operative follow-up appointment and should call the office to confirm the date and time. Patient is to follow up with his primary surgeon, Dr. Mullins, [facility]. Status post I&D left total knee with poly-exchange POD#3 -ID recs appreciated, IV abx switched to daptomycin and rifampin, will need 6 weeks IV abx, picc in place, followed by chronic suppression. Meds placed in DC section. -DVT prophylaxis: SCDs, teds, ASA twice daily -Weight-bear as tolerates left lower extremity -PT/OT, avoid flexion greater than 80 to 90 degrees, if compliance issue maintain knee immobilizer. -Knee immobilizer in bed -Postoperative x-ray Demonstrates well aligned well fixed total knee prosthesis without evidence of fracture dislocation -A.m. labs, as above hemoglobin 8.9 -Med recommendations appreciated -Intraoperative cultures growing MRSA -DC planning - DC /transfer to [place] rehab today. POD#2 -ID recs appreciated, IV abx switched to daptomycin and rifampin, will need 6 weeks IV abx, picc in place, followed by chronic suppression -DVT prophylaxis: SCDs, teds, ASA twice daily -Weight-bear as tolerates left lower extremity -PT/OT, avoid flexion greater than 80 to 90 degrees, if compliance issue maintain knee immobilizer. -Knee immobilizer in bed -Postoperative x-ray Demonstrates well aligned well fixed total knee prosthesis without evidence of fracture dislocation -A.m. labs, as above hemoglobin 8.3 -Drain DC'd secondary to loosing suction -Med recommendations appreciated -Intraoperative cultures growing MRSA -DC planning POD#1 -Vancomycin/cefepime, will consult KELLY Day for further recommendations based on cultures, currently growing staph species. -PICC line ordered -DVT prophylaxis: SCDs, teds, ASA twice daily -Weight-bear as tolerates left lower extremity -PT/OT, avoid flexion greater than 80 to 90 degrees, if compliance issue maintain knee immobilizer. -Knee immobilizer in bed -Postoperative x-ray Demonstrates well aligned well fixed total knee prosthesis without evidence of fracture dislocation -A.m. labs, as above hemoglobin 9.0 -Drain output 50/210 -Med recommendations appreciated -Intraoperative cultures growing staph species, sensitivities pending -DC planning Total Time Total Time Spent Total Time Spent (In Minutes): >60 Discharge Plan Discharge Items Patient Disposition: Transfer Half-Way Fac Reason For Visit: POST OPERATIVE SURGICAL SITE INFECTION Discharge Diagnosis: Left total knee periprosthetic joint infection Condition on Discharge: Good Activity: Per Instructions section Lifting: Wait until after follow-up appointment Bathing: Keep incision dry Bathing Comment: No bathing, pools or hot tubs Sexual Activity: Wait until after follow-up appointment Exercise/Sports: Wait until after follow-up appointment Driving/Machine Use: No driving Weightbearing: Full weightbearing Non-emergency contact: Primary Care Provider and Surgeon Call non-emergency contact if: you have any medication questions, your symptoms worsen, your pain is not controlled, your pain is worsening, your pain is unusual for you, your pain is concerning for you, you have a fever, your temperature is above 101, your wound has increased redness, your wound has increased drainage and your wound pain has increased Follow-up/Referrals: Brian Bojorquez MD [Physician] - (4 weeks) Yael Coelho C.R.N.P. [Primary Care Provider] - Diet: Regular Addtl Attending Provider Instructions: PLEASE SEE ATTACHED RX'S FOR WEEKLY LAB DRAWS. PLEASE SEND LAB RESULTS TO DR MULLINS (FAX [phone]) RESULTS CAN ALSO BE DISCUSSED WITH DR JENIFFER BOJORQUEZ AT [facility] ACTIVITY RECOMMENDATIONS: SELF CARE INSTRUCTIONS AFTER TOTAL KNEE REPLACEMENT, I+D, poly exchange A. You may need to continue a physical therapy program after discharge from the hospital. There are several options available to you. Your doctor will assist you in selecting the best one for you. 1. An out-patient facility 2 to 3 times a week for therapy or home therapy. 2. Continue working on all exercises taught to you in the hospital. Your goals should be to increase bending of your knee to 80-90 degrees and to fully straighten your knee. B. You may progress at your own pace from walking with a walker or crutches to a cane; then to no assistive devices. C. Make walking a part of your daily routine. Be up as much as comfortable with rest periods throughout the day. Rest with leg elevation is very important. Use the ice wrap frequently for the first 3-4 weeks. D. There are no restrictions on activities. You may ride in a car, shop, participate in shoe sticks repairer and all social activities. E. Wear the long elastic stockings (SORAIDA hose) 20 hours a day for 2 weeks after surgery. They can be removed several times a day for laundering and for a bath. F. You may shower, no tub baths until cleared by your doctor. SPECIAL CARE INSTRUCTIONS: VERY IMPORTANT TO READ AND REVIEW A. There are a few signs you need to watch for after you are home. Call [facility] if you notice any of the followin. Increased severe knee pain. Some pain is expected especially when you exercise. 2. Increased swelling in your leg or knee; pain or swelling of the calf muscle in either lower leg. 3. Any fluid drainage from the incision. 4. Shortness of breath or chest pain. B. Please call [facility] at if you have any concerns or questions about your operation or recovery. The doctor or his nurse will return your call promptly. C. You must take antibiotics before dental work, bladder, bowel or other surgery. Your doctor will provide you with a permanent care to carry describing this precaution. IMPORTANT: * REMEMBER TO TAKE ASPIRIN, 81 MG, TWICE DAILY FOR 4 WEEKS UNLESS OTHERWISE DIRECTED. THIS IS YOUR BLOOD THINNER. * HIGH RISK PATIENTS MAY BE PRESCRIBED A STRONGER BLOOD THINNER. THIS WILL BE PROVIDED AT DISCHARGE. * CALL IF INCREASED PAIN, REDNESS, DRAINAGE OR FEVER GREATER THAT 101. * WEAR SORAIDA HOSE 20 HOURS PER DAY FOR 2 WEEKS. * KEEP INCISION CLEAN AND DRY AT ALL TIMES, CHANGE DRESSING DAILY, 4X4s AND FIORELLA WRAP. * MAINTAIN KNEE IMMOBILIZER AT NIGHT, NO FLEXING OF THE KNEE PAST 90 DEGREES UNTIL SEEN IN OFFICE. IF INCISION IS LEAKING THROUGH DRESSING, CALL THE OFFICE . FOLLOW UP VISIT: If appointment is not already scheduled: Please call [facility] to make a follow-up appointment for Dr. Mullins, 2 weeks after your surgery at . Addtl Piercing Artist Provider Instructions: You were placed on Daptomycin IV (antibiotic) for the infection in your knee, which grew out MRSA. * This will be continued with rifamin 300mg by mouth twice daily. * This will be continued for 6 weeks and you should have follow up with the Infectious Disease provider in the next 4 weeks at either [facility] or [place] location. * You will need weekly CBC, CMP, ESR and CPK while on this medication. You will also be instructed to HOLD your simvastatin for the next 6 weeks as this medication interacts with your antibiotic. After your course of IV antibiotics, it is being recommended that you be on continued immunosuppression with clindamycin and rifampin, but this will be further discussed at your follow up appointment. You have also been found to have low iron stores and have been started on iron supplementation. Be aware that this can cause some GI upset and darkened stools and possibly worsen constipation. You may continue a bowel regimen with miralax and colace over the counter as needed for constipation. Please keep all follow up appointments as scheduled. It has been a pleasure being a part of the medical team providing for you while you have been in the hospital. Take care! Pending Studies at Discharge: No Stand-Alone Forms: My [facility] ReviewPro, Opioid Pain Management Skilled Items Patient informed of condition?: Yes DNR: No Discharge Level of Care: Acute rehab Communicable Disease: Yes Discharge Prognosis: Stable Lines: PICC Urinary Catheter: No Medications and DC Order Prescriptions: New aspirin 81 mg Tablet,Delayed Release (Dr/Ec) 81 mg PO BID Qty: 56 RF: 0 acetaminophen 500 mg Tablet 1,000 mg PO Q8H PRN (Reason: pain/fevers) Qty: 90 RF: 0 oxycodone 5 mg Tablet 5 mg PO Q6H MDD 4 PRN (Reason: pain) Qty: 30 RF: 0 sennosides [Senokot] 8.6 mg Tablet 17.2 mg PO HS PRN (Reason: constipation) Qty: 28 RF: 0 ferrous sulfate 325 mg (65 mg iron) tablet 325 mg PO DAILY Qty: 30 RF: 0 rifampin 300 mg Capsule 300 mg PO BID 42 Days Qty: 84 RF: 0 daptomycin 500 mg recon soln 1,000 mg IV DAILY 42 Days Qty: 10 RF: 0 Continued ondansetron HCl 8 mg Tablet 8 mg PO Q8H PRN (Reason: Nausea) RF: 0 lisinopril 20 mg Tablet 20 mg PO DAILY RF: 0 allopurinol 100 mg Tablet 100 mg PO DAILY RF: 0 levothyroxine 50 mcg Tablet 50 mcg PO DAILY RF: 0 buspirone 10 mg Tablet 30 mg PO BID RF: 0 hydrochlorothiazide 25 mg Tablet 25 mg PO DAILY RF: 0 atenolol 50 mg Tablet 50 mg PO DAILY RF: 0 benzoyl peroxide 2.5 % Cleanser 1 applic TOPICAL DAILY RF: 0 escitalopram oxalate [Lexapro] 20 mg Tablet 20 mg PO DAILY RF: 0 doxycycline hyclate 50 mg Tablet 50 mg PO DAILY RF: 0 Unk Antibiotic Ear Gtts 2 drp OTR UD PRN (Reason: ..) RF: 0 Discontinued celecoxib [Celebrex] 200 mg Capsule 200 mg PO BID RF: 0 sennosides [Senokot] 8.6 mg Tablet 8.6 mg PO HS PRN (Reason: Constipation) RF: 0 meloxicam 15 mg Tablet 15 mg PO DAILY PRN (Reason: Pain) RF: 0 aspirin [Aspir-81] 81 mg Tablet,Delayed Release (Dr/Ec) 81 mg PO BID RF: 0 simvastatin 40 mg Tablet 20 mg PO HS RF: 0 cefadroxil 500 mg Capsule 500 mg PO BID RF: 0 oxycodone [Roxicodone] 5 mg tablet 5 mg PO Q4 PRN (Reason: Pain) RF: 0 Discharge Orders: Discharge Order (Routine); Ordered 03/18/20 Ordered By: Maxwell Veras Admission Data Admit Date/Time: 03/14/20 17:51 Attending Provider: Jason Strange Admit Provider: Jason Strange Primary Care Provider: Yael Coelho Other Providers: Jason Strange ; Frederick Nugent ; Bette Nails ; Brian Bojorquez I. ; Aravind Hdez II ; Hetal Anne ; Jean-Paul Vieira ; Khushbu Mehta Other Interventions: Discharge Summary Assessment (RN) Last Done: 03/18/20 10:16
== END 2020-03-18 12:16 | DRG 468 ==
LOC: ED 16:34 → 3N 17:51

== ENCOUNTER 2024-01-09 16:02 | Inpatient (IN) ==
--- NOTE | 2024-01-09 16:10 | ED Triage Note ---
Date of Service January 09, 2024 Provider in Triage Author: Alondra Rome History of Present Illness This patient was briefly evaluated while in triage. An abbreviated physical exam was performed. This patient is a 68-year-old Male who presents to the ED for evaluation of abnormal labs. He states that his doctor called him saying that his "numbers" were elevated. Had labs at [facility] in [place] today, but sees the [facility]. He's not sure what it abnormal or what he had the labs done for. He states that he hasn't been having symptoms and denies any symptoms currently. He had stents puts in about 1 week ago and he is now on a blood thinner. Has a alarm security or surveillance monitor in place right now as well. He denies any chest pain or SOB. Denies abdominal pain, nausea, or vomiting. Physical Exam GENERAL: Non-toxic and in no acute distress. HEENT: Pupils equal. No obvious scleral icterus. HEART: Regular rate and rhythm. color television console monitor in place on the chest wall. LUNGS: Clear to auscultation. No accessory muscle use. ABDOMEN: Soft, non-tender to palpation. NEURO: Alert and oriented. No obvious neurological deficits on quick neuro exam. Initial orders for labs and / or imaging were placed and patient was placed in the waiting area until a bed is available. Please see further documentation for the full ED course.
--- NOTE | 2024-01-09 16:25 | XRay Report ---
XR chest 1V portable HISTORY: 68 years-old Male Chest pain, nonspecific COMPARISON: 03/14/2020 TECHNIQUE: PA view of the chest FINDINGS: Electronic device projects over the left chest. Cardiomediastinal and hilar silhouettes are unchanged . No pneumothorax, pleural effusion or airspace consolidation. Spondylitic spurring of the spine. Unc hanged appearance of the right scapula. IMPRESSION: No acute process. ACT 112: Negative or not required by law. The above report was generated using voice recognition software. It may contain grammatical, syntax o r spelling errors. Electronically signed by: Brian Mayfield M.D. 01/09/2024 4:23 PM
[2024-01-09 16:30] LABS: Basophils # (auto) 0.08 K/uL (0.00-0.20); Basophils % (auto) 0.8 %; Eosinophils # (auto) 0.39 K/uL (0.00-0.50); Eosinophils % (auto) 3.9 %; Hematocrit (blood only) 43.2 % (42.0-52.0); Hemoglobin 14.4 g/dl (14.0-18.0); Immature Granulocytes # (auto) 0.11 K/uL (0.01-0.20); Immature Granulocytes % (auto) 1.1 %; Lymphocytes # (auto) 1.51 K/uL (1.20-3.40); Lymphocytes % (auto) 15.3 %; Mean Corpuscular Hemoglobin 27.9 pg (25.0-34.0); Mean Corpuscular Hgb Conc 33.3 g/dL (32.0-36.0); Mean Corpuscular Volume 83.6 fL (80.0-100.0); Mean Platelet Volume 9.5 fL (9.4-12.4); Monocytes # (auto) 1.02 K/uL (0.11-0.59); Monocytes % (auto) 10.3 %; Neutrophils # (auto) 6.77 K/uL (1.40-6.50); Neutrophils % (auto) 68.6 %; Platelet Count 270 K/uL (130-400); RDW Coefficient of Variation 15.9 % (11.5-14.5); RDW Standard Deviation 48.1 fL (36.4-46.3); Red Blood Count 5.17 M/uL (4.70-6.10); White Blood Count 9.88 K/ul (4.8-10.8)
[2024-01-09 16:49] LABS: Albumin Globulin Ratio 1.1 (0.9-2); BUN Creatinine Ratio 17.5 (10-20); Bilirubin,Total 0.5 mg/dl (0.2-1.0); Calcium 9.3 mg/dl (8.6-10.3); Creatinine Clr Calc Pharmacy 40.4 ml/min; Est GFR (African American) 29.8 ml/min; Est GFR (Non-African American) 25.7 ml/min; Globulin 3.5 gm/dl (2.5-4.0); Potassium 4.9 mmol/L (3.5-5.1); Total Protein 7.5 gm/dl (6.0-8.3)
[2024-01-09 16:54] LABS: Troponin I High Sensitivity 48.1 pg/ml (0-20)
[2024-01-09 17:05] LABS: Partial Thromboplastin Time 26 Seconds (21-31); Prothrombin Time 10.7 Seconds (9.0-12.0)
--- NOTE | 2024-01-09 17:53 | CT Scan Report ---
CT abd pelvis wo con CLINICAL HISTORY: bello ro kidney stone TECHNIQUE: Helical axial images of the abdomen and pelvis were obtained. Automated dose lowering tech niques and/or adjustment according to patient size were utilized for this exam. This exam was perfor med without intravenous contrast. CT DOSE: 1521.46 mGy.cm COMPARISON: None available at the time of this dictation. FINDINGS: Lower chest: Bibasilar atelectasis versus scarring is seen. Liver: Unremarkable. No focal lesions are seen. Gallbladder and biliary tree: No calcified gallstones. Normal caliber wall. No intra- or extrahepatic biliary ductal dilation. Pancreas: Unremarkable, no focal lesions. Spleen: Unremarkable. Adrenals: Unremarkable. Kidneys and ureters: Perinephric stranding is noted bilaterally. Bladder: Unremarkable. Reproductive organs: Unremarkable. Bowel: Diverticulosis is seen without diverticulitis. The appendix is normal. Lymph nodes Retroperitoneal: Unremarkable. Pelvic: Unremarkable. Mesenteric: Unremarkable. Peritoneum: Normal. Vessels: Atherosclerotic calcifications are seen. Abdominal wall: Unremarkable. Bones: Degenerative changes in the visualized spine. IMPRESSION: 1. No hydronephrosis or obstructive nephrolithiasis is seen. 2. Diverticulosis without diverticulitis. 3. Additional findings as above. ACT 112: Negative or not required by law. Electronically signed by: Norbert Oneil M.D. 01/09/2024 5:51 PM
--- NOTE | 2024-01-09 18:39 | History & Physical Report ---
Date of Service January 09, 2024 Assessment & Plan (1) FLORIAN (acute kidney injury): Plan: Baseline Cr: 1.2 [December 21, 2023] [facility] note reports - "likely needs right heart catheterization to assess hemodynamics and filling pressures" although no sign of heart failure right/left at this time Given he is unable to tell me about his medications suspect cause may be just mixing up his medications No post obstructive cause on CT UA relatively unremarkable to be concerned for intrinsic renal disease ?post contrast nephropathy - although controversy whether this is even a real condition 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) it can cause FLORIAN Hold lisinopril and furosemide - possible these have already been on hold for the last week but patient unable to confirm LR @ 125ml/hr overnight and repeat Cr in AM - if getting worse consider nephrology evaluation Reduce Lyrica to 50mg BID due to reduced eGFR (2) H/O heart artery stent: Plan: s/p December 27 stent to OM2 Troponin stable Continue ASA, clopidogrel, rosuvastatin (3) Hypertension: Plan: Hold lisinopril and furosemide due to FLORIAN (4) Sleep apnea: Plan: Noted history of this but not on CPAP as outpatient Plan VTE Prophaylaxis - heparin 5000 units SQ BID Diet - low potassium Disposition - admit to med/tele Admission and Anticipated Discharge Date Admission Date: January 09, 2024 History of Present Illness Chief Complaint: Abnormal outpatient labs Primary Care Provider: EMILIANO Christian Liam Oviedo is a 68 year old male who presents to the ER on the advice of his [facility] providers due to acute kidney injury following cardiac catheterization and stent placement on December 27 at the [facility] [place]. Feeling the same since having his stent, no improvement with his dyspnea on exertion and diaphoresis. This has been ongoing for the last 6 months. He also notes no worse since the cardiac catheterization. No chest pain, palpitations, weight gain or leg swelling. He has ongoing poor urine stream for the last year and takes tamsulosin for this but no acute change. Otherwise not other urinary symptoms. No abdominal pain, nausea, vomiting or diarrhea. He thinks because of his kidney function getting worse he was told by his PCP last week on Tuesday to hold two of his medications - he thinks furosemide (presumably the other one was lisinopril). Labs this morning were repeat to keep a close eye on his renal function. Cr 2.2 [01/09/24], 1.9 [01/04/2024], 1.2 [12/21/2023] BUN 36, 34, 26 Allergies Allergy/AdvReac Type Severity Reaction Status Date / Time Influenza Virus Vaccines Allergy Severe allergy? Verified 01/09/24 19:29 rxn = "passed out" Home Medications Medication Instructions Recorded Confirmed Type escitalopram oxalate 20 mg tablet 20 mg PO QAM 03/14/20 01/09/24 History (Lexapro) lisinopril 20 mg tablet 20 mg PO QAM 03/14/20 01/09/24 History duloxetine 30 mg capsule,delayed 30 mg PO QAM 01/27/22 01/09/24 History release clindamycin HCl 150 mg capsule 300 mg PO TID PROPHALAXIS 06/20/23 01/09/24 History rosuvastatin 40 mg tablet 20 mg PO HS 06/21/23 01/09/24 History tamsulosin 0.4 mg capsule 0.4 mg PO HS 06/21/23 01/09/24 History aspirin 81 mg chewable tablet 81 mg PO DAILY 09/26/23 01/09/24 History albuterol sulfate 90 mcg/actuation 1 inh inhalation QID PRN 01/09/24 01/09/24 History aerosol inhaler sob/wHEEZING atenolol 25 mg tablet 25 mg PO DAILY 01/09/24 01/09/24 History bupropion HCl 75 mg tablet 75 mg PO QAM 01/09/24 01/09/24 History buspirone 15 mg tablet 30 mg PO BID 01/09/24 01/09/24 History cholecalciferol (vitamin D3) 25 25 mcg PO DAILY 01/09/24 01/09/24 History mcg (1,000 unit) tablet (Vitamin D3) clopidogrel 75 mg tablet (Plavix) 75 mg PO DAILY 01/09/24 01/09/24 History diclofenac sodium 1 % topical gel 2 g topical TID PRN KNEE PAIN 01/09/24 01/09/24 History duloxetine 60 mg capsule,delayed 60 mg PO QAM 01/09/24 01/09/24 History release furosemide 40 mg tablet (Lasix) 40 mg PO DAILY 01/09/24 01/09/24 History magnesium oxide 420 mg tablet 420 mg PO DAILY 01/09/24 01/09/24 History pregabalin 150 mg capsule (Lyrica) 150 mg PO BID 01/09/24 01/09/24 History Past Med/Surg History Problem List FLORIAN (acute kidney injury) Abnormal stress test BURLESON (dyspnea on exertion) CKD (chronic kidney disease) stage 3, GFR 30-59 ml/min Anxiety Depression High cholesterol Hypertension Hypothyroid Medical History Atypical chest pain Infection of total left knee replacement Post-operative infection Sleep apnea STOPPED USING HIS CPAP Surgical History H/O heart artery stent History of shoulder surgery RIGHT X 2 History of knee surgery LEFT KNEE-REVISION TKA AND DEBRIDEMENT AFTERWARDS History of colonoscopy Hx of umbilical hernia repair History of left knee replacement Family History Other No known health problems Social History Smoking Status: Never smoker Second Hand Exposure: Yes (HX); Do You Dip or Chew Tobacco: No; Hx Alcohol Use: No Hx Substance Use: No Preferred Language: Yoruba Communication Ability: Effective 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 Required: No Beliefs That Will Affect Care: None Current Living Situation: Family Current Living Situation Comment: BROTHER LIVES WITH PT current occupational status: retired Feels Safe at Home: No Is there a partner from a previous relationship who is making you feel unsafe now?: No Safety Concerns: Feels Safe At This Time Assistive Devices: Cane and Glasses Review of Systems Review of Systems: All systems reviewed & are unremarkable except as noted in HPI & below Physical Exam Constitutional: well developed; + not well nourished and no acute distress Eyes: PERRL, conjunctivae normal, anicteric sclerae ENMT: external ear and nose normal, oropharynx normal Respiratory: normal respiratory effort, lungs clear to auscultation Cardiovascular: Rate/Rhythm: regular rate and regular rhythm Heart Sounds: no murmur Extremities: normal capillary refill and + pedal edema (trace pitting b/l equal); no calf tenderness Gastrointestinal (Abdomen): normal bowel sounds, soft, nontender, no hepatosplenomegaly Musculoskeletal: no cyanosis or clubbing, extremities motor strength 5/5 Skin: no rashes, warm and dry Neurologic: moves all extremities and awake; not confused Psychiatric: A+Ox3, euthymic affect Genitourinary: no CVA tenderness Results & Data Results & Data Vital Signs (Past 12 Hours) Vital Signs Temp Pulse Pulse Resp BP BP Pulse Ox 01/09/24 18:21 57 L 95 01/09/24 18:11 114/58 L 01/09/24 16:59 64 20 137/78 93 01/09/24 16:10 36.5 C 60 14 120/71 93 O2 Del Method 01/09/24 18:21 Room Air 01/09/24 18:11 01/09/24 16:59 Room Air 01/09/24 16:10 Room Air Laboratory Results Abnormal lab results 01/09/24 01/09/24 01/09/24 Range/Units 16:15 18:10 Unknown RDW Std Deviation 48.1 H (36.4-46.3) fL RDW Coeff of Colt 15.9 H (11.5-14.5) % Neut # (Auto) 6.77 H (1.40-6.50) K/uL Sherman # (Auto) 1.02 H (0.11-0.59) K/uL Sodium 134 L (136-145) mmol/L BUN 43 H (6-23) mg/dl Creatinine 2.46 H (0.6-1.4) mg/dl Troponin I High Sens 48.1 H 46.8 H (0-20) pg/ml Lipase 8 L (11-82) U/L TSH 8.899 H (0.300-4.500) uIu/ml Urine Appearance Cloudy A (Clear) Urine Protein 1+ H (Negative) Urine Ketones Trace H (Negative) Ur Leukocyte Esterase Trace H (Negative) Urine WBC (Auto) 6-10 H (0-5) /hpf U Hyaline Cast (Auto) >20 H (0-2) /lpf U Epithel Cells (Auto) 11-20 H (0-2) /hpf Hyaline Casts Present A (None Presnt) /lpf Urine Mucus Present A (None Prsent) Diagnostic Findings XR chest 1V portable HISTORY: 68 years-old Male Chest pain, nonspecific COMPARISON: 03/14/2020 TECHNIQUE: PA view of the chest FINDINGS: Electronic device projects over the left chest. Cardiomediastinal and hilar silhouettes are unchanged. No pneumothorax, pleural effusion or airspace consolidation. Spondylitic spurring of the spine. Unchanged appearance of the right scapula. IMPRESSION: No acute process. CT abd pelvis wo con CLINICAL HISTORY: florian ro kidney stone TECHNIQUE: Helical axial images of the abdomen and pelvis were obtained. Automated dose lowering techniques and/or adjustment according to patient size were utilized for this exam. This exam was performed without intravenous contrast. CT DOSE: 1521.46 mGy.cm COMPARISON: None available at the time of this dictation. FINDINGS: Lower chest: Bibasilar atelectasis versus scarring is seen. Liver: Unremarkable. No focal lesions are seen. Gallbladder and biliary tree: No calcified gallstones. Normal caliber wall. No intra- or extrahepatic biliary ductal dilation. Pancreas: Unremarkable, no focal lesions. Spleen: Unremarkable. Adrenals: Unremarkable. Kidneys and ureters: Perinephric stranding is noted bilaterally. Bladder: Unremarkable. Reproductive organs: Unremarkable. Bowel: Diverticulosis is seen without diverticulitis. The appendix is normal. Lymph nodes Retroperitoneal: Unremarkable. Pelvic: Unremarkable. Mesenteric: Unremarkable. Peritoneum: Normal. Vessels: Atherosclerotic calcifications are seen. Abdominal wall: Unremarkable. Bones: Degenerative changes in the visualized spine. IMPRESSION: 1. No hydronephrosis or obstructive nephrolithiasis is seen. 2. Diverticulosis without diverticulitis. 3. Additional findings as above. Medications Administered ER Medications Given: None ECG Rate (beats per minute): 56 Rhythm: sinus bradycardia Findings: no acute ischemic change Comparison ECG Date: from (Aug 25, 2023) Change: no significant change Code Status & VTE Plan Code Status DNR in setting of cardiac arrest. All other treatment including intubation outside of a cardiac arrest. VTE Prophylaxis Plan VTE Prophylaxis will be ordered: Yes PG Care Time/CCT Total # of Minutes Spent Total Time Spent with Patient: Total time spent is greater than 50% in coordination of care (as documented) at patient's floor/unit and/or counseling patient: Coding Level of Care Code 72672 INT INP/OBS CARE 3/75MIN Diagnoses FLORIAN (acute kidney injury) N17.9 H/O heart artery stent Z95.5 Hypertension I10 Sleep apnea G47.30
[2024-01-09 18:42] LABS: Appearance Urine Cloudy (Clear); Bacteria Urine Automated None Seen (None Seen); Bilirubin Urine Negative (Negative); Blood Urine Negative (Negative); Cast Urine Automated >20 /lpf (0-2); Color Urine Dark Yellow; Glucose Urine UA Negative (Negative); Hyaline Casts Urine Present /lpf (None Presnt); Ketones Urine Trace (Negative); Leukocyte Esterase Urine Trace (Negative); Mucus Urine Present (None Prsent); Nitrite Urine Negative (Negative); Protein Urine 1+ (Negative); RBC Urine Automated 0-2 /hpf (0-2); Specific Gravity Urine 1.021 (1.000-1.030); Urobilinogen Urine Negative (Negative)
[2024-01-09 18:45] LABS: Troponin I High Sensitivity 46.8 pg/ml (0-20)
[2024-01-09 19:42] LABS: Thyroid Stimulating Hormone 8.899 uIu/ml (0.300-4.500)
[2024-01-09 20:17] LABS: T4 Free Thyroxine 0.8 ng/dl (0.61-1.60)
[2024-01-09] MEDS: LACTATED RINGER'S 1,000 ML IV SCH (20:23)
--- NOTE | 2024-01-09 22:00 | Emergency Department Note ---
History of Present Illness General Chief Complaint: Abnormal Labs/Diagnostic Testing Stated Complaint: ABN LABS/BLOOD WORK, DOC REF Time Seen by Provider: 01/09/24 16:53 History of Present Illness Provider Complaint: + abnormal lab Returns today for: + called because of abnormal lab/test Description of abnormal result: Abnormal renal function Associated symptoms: no fever, no chest pain, no shortness of breath, no nausea or no abdominal pain Home Medications Medication Instructions Recorded Confirmed Type escitalopram oxalate 20 mg tablet 20 mg PO QAM 03/14/20 01/09/24 History (Lexapro) lisinopril 20 mg tablet 20 mg PO QAM 03/14/20 01/09/24 History duloxetine 30 mg capsule,delayed 30 mg PO QAM 01/27/22 01/09/24 History release clindamycin HCl 150 mg capsule 300 mg PO TID PROPHALAXIS 06/20/23 01/09/24 History rosuvastatin 40 mg tablet 20 mg PO HS 06/21/23 01/09/24 History tamsulosin 0.4 mg capsule 0.4 mg PO HS 06/21/23 01/09/24 History aspirin 81 mg chewable tablet 81 mg PO DAILY 09/26/23 01/09/24 History albuterol sulfate 90 mcg/actuation 1 inh inhalation QID PRN 01/09/24 01/09/24 History aerosol inhaler sob/wHEEZING atenolol 25 mg tablet 25 mg PO DAILY 01/09/24 01/09/24 History bupropion HCl 75 mg tablet 75 mg PO QAM 01/09/24 01/09/24 History buspirone 15 mg tablet 30 mg PO BID 01/09/24 01/09/24 History cholecalciferol (vitamin D3) 25 25 mcg PO DAILY 01/09/24 01/09/24 History mcg (1,000 unit) tablet (Vitamin D3) clopidogrel 75 mg tablet (Plavix) 75 mg PO DAILY 01/09/24 01/09/24 History diclofenac sodium 1 % topical gel 2 g topical TID PRN KNEE PAIN 01/09/24 01/09/24 History duloxetine 60 mg capsule,delayed 60 mg PO QAM 01/09/24 01/09/24 History release furosemide 40 mg tablet (Lasix) 40 mg PO DAILY 01/09/24 01/09/24 History magnesium oxide 420 mg tablet 420 mg PO DAILY 01/09/24 01/09/24 History pregabalin 150 mg capsule (Lyrica) 150 mg PO BID 01/09/24 01/09/24 History Allergies Allergy/AdvReac Type Severity Reaction Status Date / Time Influenza Virus Vaccines Allergy Severe allergy? Verified 01/09/24 19:29 rxn = "passed out" Past Med/Surg History Problem List FLORIAN (acute kidney injury) Abnormal stress test BURLESON (dyspnea on exertion) CKD (chronic kidney disease) stage 3, GFR 30-59 ml/min Anxiety Depression High cholesterol Hypertension Hypothyroid Medical History Atypical chest pain Infection of total left knee replacement Post-operative infection Sleep apnea STOPPED USING HIS CPAP Surgical History H/O heart artery stent History of shoulder surgery RIGHT X 2 History of knee surgery LEFT KNEE-REVISION TKA AND DEBRIDEMENT AFTERWARDS History of colonoscopy Hx of umbilical hernia repair History of left knee replacement Family History Other No known health problems Social History Smoking Status: Former smoker Second Hand Exposure: Yes (HX); Do You Dip or Chew Tobacco: No; Hx Alcohol Use: No Hx Substance Use: No Preferred Language: Prydeinig Communication Ability: Effective 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 Required: No Beliefs That Will Affect Care: Caodaism Caodaism Beliefs: PENTECOSTALISM Current Living Situation: Family Current Living Situation Comment: BROTHER LIVES WITH PT current occupational status: retired Feels Safe at Home: Yes Assistive Devices: Cane and Glasses Physical Exam 2 Vital Signs: Vital Signs - 24 hr 01/09/24 16:10 01/09/24 16:59 01/09/24 18:11 Temperature 36.5 C Temperature Source Temporal Artery Sc an Pulse Rate 60 Pulse Rate [Left A pical] 64 Respiratory Rate 14 20 Respiratory Effort / Characteristics Spontaneous Short of Breath Respiratory Depth Normal Normal Respiratory Patter n Regular Blood Pressure 120/71 Blood Pressure [Ri ght Arm] 137/78 114/58 L Blood Pressure Bibi n 87 Blood Pressure Bibi n [Right Arm] 97 76 Pulse Oximetry 93 93 Oxygen Delivery Me thod Room Air Room Air Sepsis Recent Feve r Within 48 Hours No Sepsis New/Unexpla ined Change in Men isac Status N/A Sepsis Action Take n by Nursing No Action Required 01/09/24 18:21 01/09/24 18:52 Temperature Temperature Source Pulse Rate 53 L Pulse Rate [Left A pical] 57 L Respiratory Rate Respiratory Effort / Characteristics Respiratory Depth Respiratory Patter n Blood Pressure Blood Pressure [Ri ght Arm] Blood Pressure Bibi n Blood Pressure Bibi n [Right Arm] Pulse Oximetry 95 Oxygen Delivery Me thod Room Air Sepsis Recent Feve r Within 48 Hours Sepsis New/Unexpla ined Change in Men isac Status Sepsis Action Take n by Nursing Physical Exam: Physical Exam GENERAL: oriented to person, place, and time. appears well-developed and well- nourished. HENT: Exam performed. - Head: Normocephalic and atraumatic. EYES: Conjunctivae and EOM are normal. Right eye exhibits no discharge. Left eye exhibits no discharge. No scleral icterus. NECK: Normal range of motion. Neck supple. No JVD present. CV: Normal rate, regular rhythm, normal heart sounds and intact distal pulses. There is no peripheral edema. Palpable radial pulses bue. PULM/CHEST: Effort normal and breath sounds normal. No respiratory distress. No stridor. no wheezes. no rales. ABD: The abdomen is soft. There is no tenderness. NEURO: Motor and sensation grossly intact. SKIN: Skin is warm and dry. He is not diaphoretic. PSYCH: normal mood and affect. Behavior is normal. Judgment and thought content normal. Course Course 1653: The patient was evaluated in room C6. A complete history and physical exam was performed Cardiac monitoring: An order was placed for continuous cardiac monitoring. The monitor shows a rate of 60 with sinus rhythm interpreted by me 1755: Vital signs stable. Imaging within normal limits. Labs significant for creatinine of 2.46. Patient will be admitted to the [facility] team. Administered Medications Lactated Ringer's (Lr) 1,000 mls @ 125 mls/hr IV .Q8H OSWALDO Stop: 01/10/24 19:14 Last Admin: 01/09/24 20:23 Dose: 125 mls/hr Documented By: SHIRA Medical Decision Making Medical Records Attestation: I reviewed the patient's medical records. External medical records were reviewed that were faxed over from the [facility]. On December 21, 2023 the patient had a creatinine level of 1.2 on January 04, 2024 the patient's creatinine was 1.9 and patient had blood work done today which showed a creatinine of 2.2 at the [facility]. Laboratory Data Attestation: I reviewed the patient's lab results. 01/09/24 16:15 01/09/24 16:15 Lab Results 01/09/24 01/09/24 Range/Units 16:15 18:10 WBC 9.88 (4.8-10.8) K/ul RBC 5.17 (4.70-6.10) M/uL Hgb 14.4 (14.0-18.0) g/dl Hct 43.2 (42.0-52.0) % MCV 83.6 (80.0-100.0) fL MCH 27.9 (25.0-34.0) pg MCHC 33.3 (32.0-36.0) g/dL RDW Std Deviation 48.1 H (36.4-46.3) fL RDW Coeff of Colt 15.9 H (11.5-14.5) % Plt Count 270 (130-400) K/uL MPV 9.5 (9.4-12.4) fL Immature Gran % (Auto) 1.1 % Neut % (Auto) 68.6 % Lymph % (Auto) 15.3 % Edmunds % (Auto) 10.3 % Eos % (Auto) 3.9 % Baso % (Auto) 0.8 % Neut # (Auto) 6.77 H (1.40-6.50) K/uL Lymph # (Auto) 1.51 (1.20-3.40) K/uL Edmunds # (Auto) 1.02 H (0.11-0.59) K/uL Eos # (Auto) 0.39 (0.00-0.50) K/uL Baso # (Auto) 0.08 (0.00-0.20) K/uL Immature Gran # (Auto) 0.11 (0.01-0.20) K/uL PT 10.7 (9.0-12.0) Seconds INR 1.0 (0.9-1.1) APTT 26 (21-31) Seconds PTT Ratio 1.0 Sodium 134 L (136-145) mmol/L Potassium 4.9 (3.5-5.1) mmol/L Chloride 101 (98-107) mmol/L Carbon Dioxide 25 (21-32) mmol/L Anion Gap 8 (3-11) BUN 43 H (6-23) mg/dl Creatinine 2.46 H (0.6-1.4) mg/dl Est Cr Clr Drug Dosing 40.4 ml/min Est GFR ( Amer) 29.8 ml/min Est GFR (Non-Af Amer) 25.7 ml/min BUN/Creatinine Ratio 17.5 (10-20) Glucose 94 (70-99(Fasting)) mg/dl Calcium 9.3 (8.6-10.3) mg/dl Magnesium 2.0 (1.7-2.4) mg/dl Total Bilirubin 0.5 (0.2-1.0) mg/dl AST 17 (13-39) U/L ALT 17 (7-52) U/L Alkaline Phosphatase 63 (34-104) U/L Troponin I High Sens 48.1 H 46.8 H (0-20) pg/ml B-Natriuretic Peptide 31 (0-100) pg/ml Total Protein 7.5 (6.0-8.3) gm/dl Albumin 4.0 (3.4-5.0) gm/dl Globulin 3.5 (2.5-4.0) gm/dl Albumin/Globulin Ratio 1.1 (0.9-2) Lipase 8 L (11-82) U/L TSH 8.899 H (0.300-4.500) uIu/ml Free T4 0.80 (0.61-1.60) ng/dl Imaging Data Attestation: I personally reviewed and interpreted this imaging study as follows: My Impression: Chest x-ray negative. Airway clear. No pneumothorax. No consolidation. No cardiomegaly or cephalization.. No free air under the diaphragm. No fractures of the skeletal structures. Radiologist's Impression: Chest X-Ray 01/09/24 16:10 XR chest 1V portable HISTORY: 68 years-old Male Chest pain, nonspecific COMPARISON: 03/14/2020 TECHNIQUE: PA view of the chest FINDINGS: Electronic device projects over the left chest. Cardiomediastinal and hilar silhouettes are unchanged. No pneumothorax, pleural effusion or airspace consolidation. Spondylitic spurring of the spine. Unchanged appearance of the right scapula. IMPRESSION: No acute process. ACT 112: Negative or not required by law. The above report was generated using voice recognition software. It may contain grammatical, syntax or spelling errors. Electronically signed by: Brian Mayfield M.D. 01/09/2024 4:23 PM Abdomen/Pelvis CT 01/09/24 16:53 CT abd pelvis wo con CLINICAL HISTORY: florian ro kidney stone TECHNIQUE: Helical axial images of the abdomen and pelvis were obtained. Automated dose lowering techniques and/or adjustment according to patient size were utilized for this exam. This exam was performed without intravenous contrast. CT DOSE: 1521.46 mGy.cm COMPARISON: None available at the time of this dictation. FINDINGS: Lower chest: Bibasilar atelectasis versus scarring is seen. Liver: Unremarkable. No focal lesions are seen. Gallbladder and biliary tree: No calcified gallstones. Normal caliber wall. No intra- or extrahepatic biliary ductal dilation. Pancreas: Unremarkable, no focal lesions. Spleen: Unremarkable. Adrenals: Unremarkable. Kidneys and ureters: Perinephric stranding is noted bilaterally. Bladder: Unremarkable. Reproductive organs: Unremarkable. Bowel: Diverticulosis is seen without diverticulitis. The appendix is normal. Lymph nodes Retroperitoneal: Unremarkable. Pelvic: Unremarkable. Mesenteric: Unremarkable. Peritoneum: Normal. Vessels: Atherosclerotic calcifications are seen. Abdominal wall: Unremarkable. Bones: Degenerative changes in the visualized spine. IMPRESSION: 1. No hydronephrosis or obstructive nephrolithiasis is seen. 2. Diverticulosis without diverticulitis. 3. Additional findings as above. ACT 112: Negative or not required by law. Electronically signed by: Norbert Oneil M.D. 01/09/2024 5:51 PM ECG Data Attestation: I personally reviewed and interpreted this ECG as follows: Rate (beats per minute): 56 Rhythm: sinus bradycardia Findings: no ST depression, no ST elevation or no prolonged QT MDM Narrative 1653: The patient was evaluated in room C6. A complete history and physical exam was performed Cardiac monitoring: An order was placed for continuous cardiac monitoring. The monitor shows a rate of 60 with sinus rhythm interpreted by me 1755: Vital signs stable. Imaging within normal limits. Labs significant for creatinine of 2.46. Patient will be admitted to the [facility] team. Impression & Plan FLORIAN (acute kidney injury) Discharge Plan Visit Data Chief Complaint: Abnormal Labs/Diagnostic Testing Stated Complaint: ABN LABS/BLOOD WORK, DOC REF ED Provider: Franc Pettit Discharge Problem: FLORIAN (acute kidney injury) Patient Disposition: Admitted As Inpatient Discharge Instructions Interventions: ED Discharge Assessment Last Done: 01/09/24 20:59
[2024-01-09] MEDS: HEPARIN SOD 5,000 UNIT/0.5 ML VIAL SQ SCH (22:45)
[2024-01-09] MEDS: busPIRone 15 MG TAB PO SCH (22:46)
[2024-01-09] MEDS: ROSUVASTATIN CALCIUM 20 MG TAB PO SCH (22:46)
[2024-01-09] MEDS: TAMSULOSIN HCL 0.4 MG CAP PO SCH (22:47)
[2024-01-09] MEDS: PREGABALIN 50 MG CAP PO SCH (22:48)
--- OUTSIDE RECORDS SUMMARY | 2024-01-10 04:51 | External Medical Summary | Summary of Care ---
Author Name Unknown Organization [facility] Address [address] [place] [address] Phone [phone] Care Team Providers Care Digital Ad Trafficker Name Role Phone Meliton Lisa Abel EMILIANO Primary Care Provid er Reason for Visit * Reason Onset Date Comments Nurse Documentation 12/08/2023 Encounter Details Date Type Department Care Team ([facility] st Contact Info) Description 12/08/2023 Telephone Cardiac Studies [facility] [address] [place] [address] Anastasia Culver RN Nurse Documentation Allergies No known active allergiesdocumented as of this encounter (statuses as of 12/08/2023) Medications Medication Sig Dispensed Refills Start Date End Date Status HYDROCHLOROTHIAZIDE 25 MG PO TABSIndications:HTN, goal below 140/90 1 tab by mouth daily for blood pressure 34 1 07/26/2006 Active vancomycin IV (VANCOCIN) (AMBULATORY) Administer intravenously. 0 Active Acetaminophen (TYLENOL) 325 MG CAPS Take 650 mg by mouth every 4 hours as needed. 0 Active allopurinol (ZYLOPRIM) 100 MG Tablet Take 200 mg by mouth daily. 0 Active aspirin enteric coated 81 MG TBEC Take 81 mg by mouth daily. 0 Active atenolol (TENORMIN) 100 MG Tablet Take 25 mg by mouth daily. 0 Active busPIRone HCl 30 MG TABS Take by mouth. 0 Active cholecalciferol, VIT D3, 10 MCG (400 UNIT) TABS Take by mouth. 0 Active Antiseborrheic Products, Misc. (DERMAZINC CREAM) CREA Apply topically to affected area 2 times a day. Apply to Left knee 2 times a day 0 Active doxazosin (CARDURA) 2 MG Tablet Take 2 mg by mouth at bedtime. 0 Active escitalopram (LEXAPRO) 10 MG Tablet Take 20 mg by mouth daily. 0 Active Ferrous Sulfate (IRON) 142 (45 Fe) MG TBCR Take 325 mg by mouth. 0 Active hydrALAZINE (APRESOLINE) 10 MG Tablet Take 20 mg by mouth every 4 hours as needed. 0 Active hydrOXYzine HCl 50 MG Tablet Take 50 mg by mouth 3 times a day as needed. 0 Active Lactobacillus Tablet Take 1 Tab by mouth three times a day with meals. 0 Active Levothyroxine Sodium (TIROSINT) 50 MCG Capsule Take 50 mcg by mouth daily first thing in the morning. (at least 30 min prior to breakfast or other meds) 0 Active lisinopril (PRINIVIL) 20 MG Tablet Take 20 mg by mouth daily. 0 Active potassium chloride ER 10 MEQ TABS Take 10 mEq by mouth daily. 0 Active prochlorperazine (COMPAZINE) 10 MG Tablet Take 10 mg by mouth every 6 hours as needed for Nausea. 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 90 Cap 3 04/23/2020 Active documented as of this encounter (statuses as of 12/08/2023) Social History Tobacco Use Types Packs/Day Years Used Date Smoking Tobacco: Former Cigarettes 1 15 Smokeless Tobacco: Former Snuff Comments:quit in 1994 Alcohol Use Standard Drinks/Week Comments Yes 0 (1 standard drink = 0.6 oz pur e alcohol) drank 6 pack a day quit 03/13 Sex and Gender Information Value Date Recorded Sex Assigned at Not on file Gender Identity Not on file Sexual Orientation Not on file Job Start Date Occupation Industry Not on file Not on file Not on file documented as of this encounter Miscellaneous Notes * Telephone Encounter - Anastasia Culver RN - 12/08/2023 3:34 PM EDT This patient has been triaged for cardiac CT. Attempted to reach patient on cell phone regarding cardiac CT instructions. Left voice mail message with call back number ([phone]) for patient to return call at earliest convenience. Anastasia Culver RN Cardiology [facility] 12/08/2023 3:34 PM documented in this encounter Plan of Treatment Upcoming Encounters Date Type Department Care Team (Late st Contact Info) Description 12/16/2023 8:30 AM EDT Appointment Radiology, [address] [place] [address] Health Maintenance Due Date Last Done Comments Lipid Panel 1954 Depression Screening 1966 Hepatitis C Screening 1972 TSH 1972 DTaP,Tdap,and Td Vaccines (1 - Tdap) 1973 Cologuard 10/07/1999 Colonoscopy 10/07/1999 Colorectal Cancer Screening 10/07/1999 Fecal Occult Blood Test 10/07/1999 Sigmoidoscopy 10/07/1999 Zoster Vaccines (1 of 2) 2004 AAA Screening 10/07/2019 Pneumococcal Vaccine: 65+ Ye ars (1 of 1 - PCV) 10/07/2019 COVID-19 Vaccine ( - 2022-2 4 season) 2023 Influenza Vaccine (FLU shot) (Season Ended) 2024 GARDASIL-HPV IMMUNIZATION SERIES Aged Out No longer eligible based on patient's age to complete this topic Hepatitis B Aged Out No longer eligi ble based on patient's age to complete this topic MENINGOCOCCAL (MENACTRA/MENVEO) Aged Out No longer eligible based on patient's age to complete this topic documented as of this encounter Medical Devices Not on filedocumented as of this encounter Care Teams Digital Ad Trafficker Relationship Specialty Start Date End Date Lisa Coelho CRNP [address] [facility] [place] [address] PCP - General Nurse Practitioner 03/27/20 documented as of this encounter
--- OUTSIDE RECORDS SUMMARY | 2024-01-10 04:51 | External Medical Summary | Summary of Care ---
Author Name Unknown Organization [facility] Address [address] [place] [address] Phone [phone] Care Team Providers Care Wood Bucker Name Role Phone Lisa Coelho Primary Care Provid er Encounter Details Date Type Department Care Team (Late st Contact Info) Description 08/10/2023 Result Scan Unspecified Department <No scans attached> Allergies No known active allergiesdocumented as of [...] on file documented as of this encounter Plan of Treatment Upcoming Encounters Date Type Department Care Team (Late st Contact Info) Description 12/16/2023 8:30 AM EDT Appointment Radiology, [address] [address] Health Maintenance Due Date Last Done Comments [...] Not on filedocumented as of this encounter Procedures Procedure Name Priority Date/Time Associated Diagnosis Comments ECHOCARDIOLOGY SCANNED RESULT 08/10/2023 documented in this encounter Results * ECHOCARDIOLOGY SCANNED RESULT (08/10/2023) 08/10/2023 No Physician Data Unknown ECHOCARDIOLOGY documented in this encounter Care Teams Wood Bucker Relationship Specialty Start Date End Date Lisa Coelho CRNP [address] [facility] [place] [address] PCP - General Nurse Practitioner 03/27/20 documented as of this encounter
--- OUTSIDE RECORDS SUMMARY | 2024-01-10 04:51 | External Medical Summary | Summary of Care ---
Author Name Unknown Organization [facility] Address [address] [place] [address] Phone [phone] Care Team Providers Care Supervisor Coil Winding Name Role Phone Lisa Coelho Primary Care Provid er Encounter Details Date Type Department Care Team (Late st Contact Info) Description 08/25/2023 Result Scan Unspecified Department <No scans attached> [...] Description 12/16/2023 8:30 AM EDT Appointment Radiology, [address] [address] Health Maintenance Due Date Last [...] Procedure Name Priority Date/Time Associated Diagnosis Comments EKG SCANNED RESULT 08/25/2023 documented in this encounter Results * EKG SCANNED RESULT (08/25/2023) 08/25/2023 No Physician Data Unknown EKG documented in this encounter Care Teams Supervisor Coil Winding Relationship Specialty Start Date End Date Lisa Coelho CRNP [address] [facility] [place] [address] PCP - General Nurse Practitioner 03/27/20 documented as of this encounter
--- OUTSIDE RECORDS SUMMARY | 2024-01-10 04:51 | External Medical Summary | Summary of Care ---
Author Name Unknown Organization [facility] Address [address] [place] [address] Phone [phone] Care Team Providers Care Health Promotion Officer Name Role Phone Lisa Coelho Primary Care Provid er Reason for Visit * Reason Onset Date Comments Appointment 12/07/2023 CT Cardiac Encounter Details Date Type Department Care Team ([facility] st Contact Info) Description 12/07/2023 Telephone Radiology, [place] [address] [place] [address] Services, [facility] [address] [place] [address] Appointment (CT Cardiac) Allergies No known active allergiesdocumented as of this encounter (statuses as of 12/07/2023) Medications Medication Sig Dispensed Refills Start Date [...] as of this encounter (statuses as of 12/07/2023) Social History Tobacco Use Types Packs/Day Years [...] encounter Miscellaneous Notes * Telephone Encounter - Lesia Burns OSA - 12/07/2023 1:57 PM EDT [place] Patient is scheduled for 12/16/23 at 0830 due to BMI documented in this encounter Plan of Treatment Upcoming Encounters Date Type Department Care Team (Late st Contact Info) Description 12/16/2023 8:30 AM EDT Appointment Radiology, [place] [address] [place] [address] Health Maintenance Due Date Last Done [...] filedocumented as of this encounter Care Teams Health Promotion Officer Relationship Specialty Start Date End Date Lisa Coelho CRNP [address] [facility] [place] [address] PCP - General Nurse Practitioner 03/27/20 documented as of this encounter
--- OUTSIDE RECORDS SUMMARY | 2024-01-10 04:51 | External Medical Summary | Summary of Care ---
Author Name Unknown Organization [facility] Address [address] [place] [address] Phone [phone] Care Team Providers Care Coil Strapper Name Role Phone Lisa Coelho Primary Care Provid er Encounter Details Date Type Department Care Team (Late st Contact Info) Description 08/18/2023 Result Scan Unspecified Department <No scans attached> [...] Description 12/16/2023 8:30 AM EDT Appointment Radiology, [address] [address] Health Maintenance Due Date Last [...] Procedure Name Priority Date/Time Associated Diagnosis Comments HOLTER SCANNED RESULT 08/18/2023 documented in this encounter Results * HOLTER SCANNED RESULT (08/18/2023) 08/18/2023 No Physician Data Unknown HOLTER documented in this encounter Care Teams Coil Strapper Relationship Specialty Start Date End Date Lisa Coelho CRNP [address] [facility] [place] [address] PCP - General Nurse Practitioner 03/27/20 documented as of this encounter
--- OUTSIDE RECORDS SUMMARY | 2024-01-10 04:51 | External Medical Summary | Summary of Care ---
Author Name Unknown Organization [facility] Address [address] [place] [address] Phone [phone] Care Team Providers Care Patternmaker Apprentice Wood Name Role Phone Meliton Lisa Abel EMILIANO Primary Care Provid er Reason for Visit * Reason Onset Date Comments Appointment 12/09/2023 Encounter Details Date Type Department Care Team ([facility] st Contact Info) Description 12/09/2023 Telephone Cardiac Studies [facility] [address] [place] [address] Angella Massey RN Appointment Allergies No known active allergiesdocumented as of this encounter (statuses as of 12/22/2023) Medications Medication Sig Dispensed Refills Start Date [...] as of this encounter (statuses as of 12/22/2023) Social History Tobacco Use Types Packs/Day Years [...] encounter Miscellaneous Notes * Telephone Encounter - Angella Massey RN - 12/09/2023 9:[address] IS SCHEDULED FOR 12-16-2023 at 0830 at [facility]. Please arrive 15 mins [address] to [address] Reviewed Pre Cardiac CT Eval & Prep and pre-procedure instructions with patient. Pt verbalized understanding of the following instructions: Nothing to eat for 4 hours and no caffeine 12 hours prior to scan Drink plenty of water before and after scan PT will hold his lisinopril morning of the test Your appointment will take up to 1 hour You will need to hold very still during the scan You will need to be able to hold your breath (without bearing down) for about 15-20 seconds during part of the scan. no allergy to contrast dye, and is not claustrophobic. Pt does not have any stimulators. You can bring a petrol tanker driver, the medication can make you feel very tired. Also Nitroglycerin will be given during the Cardiac CT. This medication can cause a Headache as well. The medication is short acting and after the test is completed you can get a caffeinated drink and something to eat and you willfeel better. Angella Massey, RN documented in this encounter Plan of Treatment Health Maintenance Due Date Last Done Comments Lipid Panel 1954 Depression Screening 1966 Hepatitis C Screening 1972 TSH 1972 DTaP,Tdap,and Td Vaccines (1 - Tdap) 1973 Cologuard 10/07/1999 Colonoscopy 10/07/1999 Colorectal Cancer Screening 10/07/1999 Fecal Occult Blood Test 10/07/1999 Sigmoidoscopy 10/07/1999 Zoster Vaccines (1 of 2) 2004 AAA Screening 10/07/2019 Pneumococcal Vaccine: 65+ Years (1 of 1 - PCV) 10/07/2019 COVID-19 Vaccine (3 - 2022-2 4 season) 2023 12/20/2020, 11/20/2020 Influenza Vaccine (FLU shot) (Season Ended) 2024 GARDASIL-HPV IMMUNIZATION SERIES Aged Out No longer eligible b ased on patient's age to complete this topic Hepatitis B Aged Out No longer eligi ble based on patient's age to complete this topic MENINGOCOCCAL (MENACTRA/MENVEO) Aged Out No longer eligible b ased on patient's age to complete this topic documented as of this encounter Medical Devices Not on filedocumented as of this encounter Care Teams Patternmaker Apprentice Wood Relationship Specialty Start Date End Date Lisa Coelho CRNP [address] [facility] [place] [address] PCP - General Nurse Practitioner 03/27/20 documented as of this encounter
--- OUTSIDE RECORDS SUMMARY | 2024-01-10 04:51 | External Medical Summary | Summary of Care ---
Author Name Unknown Organization [facility] Address [address] [place] [address] Phone [phone] Care Team Providers Care Digital Associate Name Role Phone Meliton Lisa Abel EMILIANO Primary Care Provid er Reason for Visit * Reason Onset Date Comments Cardiology Study 12/07/[address] Encounter Details Date Type Department Care Team (Late st Contact Info) Description 12/07/2023 Telephone Cardiac Studies, [facility] [address] [place] [address] Maurisio Stephenson, [address] [place] [address] Cardiology Study (CARDIAC CT) Allergies No known active allergiesdocumented as of [...] encounter Miscellaneous Notes * Telephone Encounter - Marylu Wilburn RT (R) - 12/07/2023 1:50 PM EDT Msg sent to [facility] scheduling to contact pt to move to [place]. * Telephone Encounter - Guillermo Hernández RN - 12/07/2023 1:38 PM EDT Received records from Dr Orellana's office at [facility] cardiology this am. Updated pt's weight was 318 lbs (updated BMI: 47.0). Discussed with Dr Stephenson. 's CT scanner not able to provide adequate quality images for high BMI pt's at safe radiation levels. Will refer to [place] for Cardiac CT. Spoke with pt and he is agreeable to having study done in [place] (pt lives in [place]). Routing to radiology for follow up. All records sent to [facility]. Guillermo Hernández RN documented in this encounter Plan of Treatment Upcoming Encounters Date Type Department Care Team (Late st Contact Info) Description 12/16/2023 8:30 AM EDT Appointment Radiology, [place] [address] [place] [address] Health Maintenance Due Date Last Done Comments [...] as of this encounter Care Teams Digital Associate Relationship Specialty Start Date End Date Lisa Coelho CRNP [address] [facility] [place] [address] PCP - General Nurse Practitioner 03/27/20 documented as of this encounter
--- OUTSIDE RECORDS SUMMARY | 2024-01-10 04:51 | External Medical Summary | Summary of Care ---
Author Name Unknown Organization [facility] Address [address] [place] [address] Phone [phone] Care Team Providers Care Polisher Aluminum Name Role Phone Lisa Coelho Primary Care Provid er Reason for Referral * Precert (Within 10 days (routine)) - Authorized Specialty Diagnoses / Procedures Referred By Contac t Referred To Contact Radiology Diagnoses Other forms of dyspnea Chest pain, unspecified type Procedures CT FFR CORONARY ARTERIES Requisition, External Radiology [address] [place] [address] Referral ID Status Reason Start Date Expiration Date V isits Requested Visits Authorized [id number] Authorized Precert 08/12/2023 02/21/2024 999 999 * Precert (Within 10 days (routine)) - Authorized Specialty Diagnoses / Procedures Referred By Contac t Referred To Contact Radiology Diagnoses Other forms of dyspnea Chest pain, unspecified type Procedures CT CARDIAC COMPLETE CT CARDIAC COMPLETE - RAD Requisition, External Radiology [address] [place] [address] Referral ID Status Reason Start Date Expiration Date V isits Requested Visits Authorized [id number] Authorized Precert 08/12/2023 02/21/2024 999 999 Reason for Visit * Precert (Within 10 days (routine)) - Authorized Specialty Diagnoses / Procedures Referred By Contac t Referred To Contact Radiology Diagnoses Other forms of dyspnea Chest pain, unspecified type Procedures CT CARDIAC COMPLETE CT CARDIAC COMPLETE - RAD Requisition, External Radiology [address] [place] [address] Referral ID Status Reason Start Date Expiration Date V isits Requested Visits Authorized [id number] Authorized Precert 08/12/2023 02/21/2024 999 999 Encounter Details Date Type Department Care Team (Latest Contact Info) Description 12/16/2023 7:46 AM EDT - 12/16/2023 11:59 PM EDT Hospital Encounter Radiology, [address] [address] Arrived Discharge Disposition: Home - Self Care Allergies No known active allergiesdocumented as of this encounter (statuses as of 12/17/2023) Medications Medication Sig Dispensed Refills Start Date [...] as of this encounter (statuses as of 12/17/2023) Social History Tobacco Use Types Packs/Day Years [...] as of this encounter Plan of Treatment Pending Results Name Type Priority Associated Diagnoses Date /Time CT CARDIAC COMPLETE Medical Imaging Routine Other forms of dyspnea Chest pain, unspecified type 12/16/2023 9:[address] FFR CORONARY ARTERIES Medical Imaging Routine Other forms of dyspnea Chest pain, unspecified type 12/16/2023 9:07 AM EDT Health Maintenance Due Date Last Done Comments [...] Procedure Name Priority Date/Time Associated Diagnosis Comments CT FFR CORONARY ARTERIES Routine 12/16/2023 9:07 AM EDT Other forms of dyspnea Chest pain, unspecified type Procedure Note - Mnan Gómez MD - 12/16/2023 9:07 AM EDTThis note is in progress. Interpretation Summary Findings are consistent with CAD-RADS category 4A (Severe 70% - 99%stenosis in one or two vessels). If clinically appropriate, considerinvasive coronary angiography or functional assessment, [id number] and preventive pharmacotherapy, 1. The exam quality is good (mild artifacts are present). 2. The Agatston calcium score is 643. The patients age and sex matchedcoronary calcium content is 79 % (ODOM). 3. Severe coronary artery disease with evidence of calcified andnoncalcified plaque. The 2nd marginal branch which is a large size vesselhas mixed plaque leading to >70% stenosis. The CTFFR in the obtusemarginal calculated by HeartFlow is 0.67 suggesting lesion ishemodynamically significant. The proximal left anterior descending arteryhas approximately 50-69% stenosis. The CTFFR in the proximal LAD ascalculated by HeartFlow is 0.90 suggesting lesion is not hemodynamicallysignificant. However, the CTFFR in the distal LAD as calculated byHeartFlow is 0.73 which is hemodynamically significant and may be thedownstream effect of the long segment of disease in the proximal and midsegments. The left main coronary artery has mixed disease leading to25-49% stenosis which is not hemodynamically significant on CT FFR. 4. The aortic root is dilated, 41mm x 40mm x 40mm.The proximal ascendingaorta is dilated, 39.3mm x 37.3mm. 5. The main pulmonary artery is dilated, 31.3mm. Findings conveyed to ordering provider. Coronary Findings The exam quality is good (mild artifacts are present). There is rightdominant coronary anatomy. The Agatston calcium score is 643. The LADAgatston calcium score is 440. The circumflex Agatston calcium score is50. The right coronary Agatston calcium score is 153. The patients age andsex matched coronary calcium content is 79 % (ODOM). Left Main Coronary Artery The distal left main coronary artery has mixed calcified plaque leading toapproximately 25-49% stenosis. Left Anterior Descending Coronary Artery The proximal left anterior descending coronary artery has moderate,possibly hemodynamically significant (50%-69%) stenosis. Proximal leftanterior descending coronary arterial wall contains mixed plaque. The midleft anterior descending coronary artery has mild (25%-49%) stenosis. Themid left anterior descending coronary arterial wall contains mixed plaque.The distal left anterior descending artery is not stenotic. The leftdescending artery has 2 diagonal branches. The 1st diagonal branch isintermediate size vessel and has proximal plaque, degree of stenosis cannot be assessed due to motion artifact. The CTFFR in the proximal LAD ascalculated by HeartFlow is 0.90. The CTFFR in the distal LAD as calculatedby HeartFlow is 0.70. Circumflex Coronary Artery The proximal circumflex has mild (25%-49%) stenosis. Proximal circumflexcoronary arterial wall contains mixed plaque. The mid left circumflexartery is not stenotic. The distal circumflex artery is inadequatelyvisualized. The circumflex artery has 2 obtuse marginal branches. The 2obtuse marginal branch has severe, likely hemodynamically significant(>70%) stenosis. The CTFFR in the obtuse marginal calculated by HeartFlowis 0.67. Right Coronary Artery The proximal right coronary artery <25% stenosis. Right coronary arterialwall contains mixed plaque. Mid coronary arterial wall contains mixedplaque. The distal right coronary artery is not stenotic. The rightposterior lateral coronary artery is not stenotic. The mid right coronaryartery has mild (25%-49%) stenosis. The posterior descending coronaryartery <25% stenosis. The CTFFR in the mid right coronary arterycalculated by HeartFlow is 0.88. Great Vessels The aortic root is dilated. The proximal ascending aorta is dilated. Thedescending thoracic aorta is normal in size. There are atheroscleroticplaques noted in the aortic root. There are atherosclerotic plaques notedin the descending thoracic aorta. The main pulmonary artery is dilated.The pulmonary venous drainage is normal. The superior vena cava is normal. Pericardium The pericardium is of normal thickness without evidence of significantpericaridal effusion. Referral Diagnosis Other forms of dyspnea [R06.09 (ICD-10-CM)] Chest pain, unspecified type [R07.9 (ICD-10-CM)] Procedure Details The Body Mass Index is '47' meter squared . Indication: chronic chest painwith low intermediate risk of CAD. Cardiac CT protocol: "Prospective" .Cardiac CT with Ca score performed: [id number] (0149T and 0151T). HeartRate: "57-58" bpm. Dose Length Produce (DLP) "536.4". Radiation dose:'7.50' mSv. Voltage setting: '140' KV. Field of view: 'cardiac structuresonly.' Scan Length 108 mm. Padding 67-70 msec. IV contrast dose: '85' mlVisapaque. mAs 743 Nitroglycerin 0.4 mg tablet was administered SL 2times. Contrast infusion rate "6.5"ml/sec. Nursing care: Rebekah Coleman Lida Backer Quality Compliance Coordinator Quantitative Analysis Aortic root: [id number] mm (transverse). Mid ascending aorta: 39.3x37.3 mm(transverse). Mid descendig aorta: 31.6x29.3 mm (transverse). Main PA31.3mm CT CARDIAC COMPLETE Routine 12/16/2023 9:07 AM EDT Other forms of dyspnea Chest pain, unspecified type Procedure Note - Mann Gómez MD - 12/16/2023 9:07 AM EDTThis note is in progress. Interpretation Summary Findings are consistent with CAD-RADS category 4A (Severe 70% - 99%stenosis in one or two vessels). If clinically appropriate, considerinvasive coronary angiography or functional assessment, [id number] and preventive pharmacotherapy, 1. The exam quality is good (mild artifacts are present). 2. The Agatston calcium score is 643. The patients age and sex matchedcoronary calcium content is 79 % (ODOM). 3. Severe coronary artery disease with evidence of calcified andnoncalcified plaque. The 2nd marginal branch which is a large size vesselhas mixed plaque leading to >70% stenosis. The CTFFR in the obtusemarginal calculated by HeartFlow is 0.67 suggesting lesion ishemodynamically significant. The proximal left anterior descending arteryhas approximately 50-69% stenosis. The CTFFR in the proximal LAD ascalculated by HeartFlow is 0.90 suggesting lesion is not hemodynamicallysignificant. However, the CTFFR in the distal LAD as calculated byHeartFlow is 0.73 which is hemodynamically significant and may be thedownstream effect of the long segment of disease in the proximal and midsegments. The left main coronary artery has mixed disease leading to25-49% stenosis which is not hemodynamically significant on CT FFR. 4. The aortic root is dilated, 41mm x 40mm x 40mm.The proximal ascendingaorta is dilated, 39.3mm x 37.3mm. 5. The main pulmonary artery is dilated, 31.3mm. Findings conveyed to ordering provider. Coronary Findings The exam quality is good (mild artifacts are present). There is rightdominant coronary anatomy. The Agatston calcium score is 643. The LADAgatston calcium score is 440. The circumflex Agatston calcium score is50. The right coronary Agatston calcium score is 153. The patients age andsex matched coronary calcium content is 79 % (ODOM). Left Main Coronary Artery The distal left main coronary artery has mixed calcified plaque leading toapproximately 25-49% stenosis. Left Anterior Descending Coronary Artery The proximal left anterior descending coronary artery has moderate,possibly hemodynamically significant (50%-69%) stenosis. Proximal leftanterior descending coronary arterial wall contains mixed plaque. The midleft anterior descending coronary artery has mild (25%-49%) stenosis. Themid left anterior descending coronary arterial wall contains mixed plaque.The distal left anterior descending artery is not stenotic. The leftdescending artery has 2 diagonal branches. The 1st diagonal branch isintermediate size vessel and has proximal plaque, degree of stenosis cannot be assessed due to motion artifact. The CTFFR in the proximal LAD ascalculated by HeartFlow is 0.90. The CTFFR in the distal LAD as calculatedby HeartFlow is 0.70. Circumflex Coronary Artery The proximal circumflex has mild (25%-49%) stenosis. Proximal circumflexcoronary arterial wall contains mixed plaque. The mid left circumflexartery is not stenotic. The distal circumflex artery is inadequatelyvisualized. The circumflex artery has 2 obtuse marginal branches. The 2obtuse marginal branch has severe, likely hemodynamically significant(>70%) stenosis. The CTFFR in the obtuse marginal calculated by HeartFlowis 0.67. Right Coronary Artery The proximal right coronary artery <25% stenosis. Right coronary arterialwall contains mixed plaque. Mid coronary arterial wall contains mixedplaque. The distal right coronary artery is not stenotic. The rightposterior lateral coronary artery is not stenotic. The mid right coronaryartery has mild (25%-49%) stenosis. The posterior descending coronaryartery <25% stenosis. The CTFFR in the mid right coronary arterycalculated by HeartFlow is 0.88. Great Vessels The aortic root is dilated. The proximal ascending aorta is dilated. Thedescending thoracic aorta is normal in size. There are atheroscleroticplaques noted in the aortic root. There are atherosclerotic plaques notedin the descending thoracic aorta. The main pulmonary artery is dilated.The pulmonary venous drainage is normal. The superior vena cava is normal. Pericardium The pericardium is of normal thickness without evidence of significantpericaridal effusion. Referral Diagnosis Other forms of dyspnea [R06.09 (ICD-10-CM)] Chest pain, unspecified type [R07.9 (ICD-10-CM)] Procedure Details The Body Mass Index is '47' meter squared . Indication: chronic chest painwith low intermediate risk of CAD. Cardiac CT protocol: "Prospective" .Cardiac CT with Ca score performed: [id number] (0149T and 0151T). HeartRate: "57-58" bpm. Dose Length Produce (DLP) "536.4". Radiation dose:'7.50' mSv. Voltage setting: '140' KV. Field of view: 'cardiac structuresonly.' Scan Length 108 mm. Padding 67-70 msec. IV contrast dose: '85' mlVisapaque. mAs 743 Nitroglycerin 0.4 mg tablet was administered SL 2times. Contrast infusion rate "6.5"ml/sec. Nursing care: Rebekah Hilton Backer Quality Compliance Coordinator Quantitative Analysis Aortic root: [id number] mm (transverse). Mid ascending aorta: 39.3x37.3 mm(transverse). Mid descendig aorta: 31.6x29.3 mm (transverse). Main PA31.3mm documented in this encounter Visit Diagnoses Diagnosis Other forms of dyspnea Chest pain, unspecified type documented in this encounter Administered Medications Inactive Administered Medications - up to 3 most recent administrations Medication Order MAR Action Action Date Dose Rate Site Iopamidol (Isovue 370) inj 100 mL 100 mL, Intravenous, ONCE, On Tue12/16/23 at 0910, For 1 dose, Radiology Medication Routing (Non-IR) Given 12/16/2023 9:10 AM EDT 85 mL Nitroglycerin (Nitrostat) sl tab 0.4 mg 0.4 mg, Sublingual, Q5 MIN PRN Other, For Cardiac Studies Only - Vasodilation related to Cardiac Studies, Starting on Tue12/16/23 at 0939, Until Tue12/16/23 at 1138, For 2 hours, May repeat up to 1.2 mg total - For Cardiac Studies Only - Vasodilation related to Cardiac Studies, Cardiac Studies_HODHOV Given 12/16/2023 9:25 AM EDT 0.8 mg documented in this encounter Care Teams Polisher Aluminum Relationship Specialty Start Date End Date Lisa Coelho CRNP [address] [facility] [place] [address] PCP - General Nurse Practitioner 03/27/20 documented as of this encounter
--- OUTSIDE RECORDS SUMMARY | 2024-01-10 04:52 | External Medical Summary | Summary of Care ---
Author Name Unknown Organization [facility] Address [address] [place] [address] Phone [phone] Care Team Providers Care Seismic Prospecting Observer Helper Name Role Phone Meliton Lisa Abel EMILIANO Primary Care Provid er Reason for Visit * Reason Onset Date Comments Cardiology Study 12/07/[address] Encounter Details Date Type Department Care Team (Late st Contact Info) Description 12/07/2023 Telephone Cardiac Studies, [facility] [address] [place] [address] Maurisio Stephenson, [address] [place] [address] Cardiology Study (CARDIAC CT) Allergies No known [...] 12/07/2023 1:50 PM EDT Msg sent to [facility] scheduling to contact pt to move to [place]. * Telephone Encounter - Guillermo Hernández RN - 12/07/2023 1:38 PM EDT Received records from Dr Orellana's office at [facility] cardiology this am. Updated pt's weight was 318 lbs (updated BMI: 47.0). Discussed with Dr Stephenson. 's CT scanner not able to provide adequate quality images for high BMI pt's at safe radiation levels. Will refer to [place] for Cardiac CT. Spoke with pt and he is agreeable to having study done in [place] (pt lives in [place]). Routing to radiology for follow up. All records sent to [facility]. Guillermo Hernández RN documented in this encounter Plan of Treatment Upcoming Encounters Date Type Department Care Team (Late st Contact Info) Description 12/13/2023 8:15 AM EDT Imaging Radiology [address] [place] [address] Health Maintenance Due Date Last Done Comments [...] filedocumented as of this encounter Care Teams Seismic Prospecting Observer Helper Relationship Specialty Start Date End Date Lisa Coelho CRNP [address] [facility] [place] [address] PCP - General Nurse Practitioner 03/27/20 documented as of this encounter
[2024-01-10 06:23] LABS: Basophils # (auto) 0.06 K/uL (0.00-0.20); Basophils % (auto) 0.8 %; Eosinophils # (auto) 0.33 K/uL (0.00-0.50); Eosinophils % (auto) 4.4 %; Hematocrit (blood only) 39.8 % (42.0-52.0); Hemoglobin 13.3 g/dl (14.0-18.0); Immature Granulocytes # (auto) 0.08 K/uL (0.01-0.20); Immature Granulocytes % (auto) 1.1 %; Lymphocytes # (auto) 0.91 K/uL (1.20-3.40); Lymphocytes % (auto) 12.1 %; Mean Corpuscular Hemoglobin 27.8 pg (25.0-34.0); Mean Corpuscular Hgb Conc 33.4 g/dL (32.0-36.0); Mean Corpuscular Volume 83.1 fL (80.0-100.0); Mean Platelet Volume 9.7 fL (9.4-12.4); Monocytes # (auto) 0.79 K/uL (0.11-0.59); Monocytes % (auto) 10.5 %; Neutrophils # (auto) 5.36 K/uL (1.40-6.50); Neutrophils % (auto) 71.1 %; Platelet Count 172 K/uL (130-400); RDW Coefficient of Variation 15.8 % (11.5-14.5); RDW Standard Deviation 47.7 fL (36.4-46.3); Red Blood Count 4.79 M/uL (4.70-6.10); White Blood Count 7.53 K/ul (4.8-10.8)
[2024-01-10 06:36] LABS: Albumin Globulin Ratio 1.1 (0.9-2); Albumin Level 3.6 gm/dl (3.4-5.0); BUN Creatinine Ratio 22.2 (10-20); Bilirubin,Total 0.5 mg/dl (0.2-1.0); Calcium 8.5 mg/dl (8.6-10.3); Creatinine Clr Calc Pharmacy 49.7 ml/min; Est GFR (African American) 38.8 ml/min; Est GFR (Non-African American) 33.5 ml/min; Globulin 3.2 gm/dl (2.5-4.0); Potassium 4.1 mmol/L (3.5-5.1); Total Protein 6.8 gm/dl (6.0-8.3)
[2024-01-10] MEDS: ASPIRIN 81 MG CHEW PO SCH (08:16)
[2024-01-10] MEDS: DULoxetine HCL 60 MG CAP PO SCH (08:16)
[2024-01-10] MEDS: CLOPIDOGREL BISULFATE 75 MG TAB PO SCH (08:16)
[2024-01-10] MEDS: DULoxetine HCL 30 MG CAP PO SCH (08:17)
[2024-01-10] MEDS: ESCITALOPRAM OXALATE 20 MG TAB PO SCH (08:17)
[2024-01-10] MEDS: buPROPion HCl 75 MG TABLET PO SCH (08:17)
[2024-01-10] MEDS: MAGNESIUM OXIDE 400 MG TAB PO SCH (08:17)
[2024-01-10] MEDS: ATENOLOL 25 MG TABLET PO SCH (08:17)
--- NOTE | 2024-01-10 15:21 | Hospitalist Progress Note ---
Date of Service January 10, 2024 Assessment & Plan (1) FLORIAN (acute kidney injury): Plan: Baseline Cr: 1.2 [December 21, 2023] [place] cardiology note reports - "likely needs right heart catheterization to assess hemodynamics and filling pressures" although no sign of heart failure right/left at this time Given he is unable to tell me about his medications suspect cause may be just mixing up his medications No post obstructive cause on CT UA relatively unremarkable to be concerned for intrinsic renal disease Contrast-induced nephropathy may be possible Creatinine is coming down slowly. 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) it can cause FLORIAN Hold lisinopril and furosemide - possible these have already been on hold for the last week but patient unable to confirm Discontinue IV fluids If creatinine not improving, will consult nephrology Reduce Lyrica to 50mg BID due to reduced eGFR (2) H/O heart artery stent: Plan: s/p December 27 stent to OM2 Troponin stable Continue ASA, clopidogrel, rosuvastatin (3) Hypertension: Plan: Hold lisinopril and furosemide due to FLORIAN (4) Sleep apnea: Plan: Noted history of this but not on CPAP as outpatient (5) Morbid obesity with BMI of 45.0-49.9, adult: Plan: His chronic dyspnea on exertion may be related to his morbid obesity. Plan VTE Prophaylaxis - heparin 5000 units SQ BID Diet - low potassium Admission and Anticipated Discharge Date Admission Date: January 09, 2024 Subjective Patient feels well. Denies chest pain. Patient says that he has had shortness of breath on exertion for several years now and that is not any worse than his usual baseline. Review of Systems Review of Systems: All systems reviewed & are unremarkable except as noted in Subjective Physical Exam Physical Exam: General: Awake, conversant Heart: S1, S2/regular rate and rhythm, no murmur rubs or gallops Lungs: Clear to auscultation bilaterally. Normal effort Abdomen: Soft/nontender/nondistended. No hepatosplenomegaly Extremities: No clubbing/cyanosis. No edema Behavior: Appropriate, cooperative Results & Data Results & Data Vital Signs (Past 12 Hours) Vital Signs Temp Pulse Pulse Resp BP Pulse Ox O2 Del Method 01/10/24 15:11 64 01/10/24 11:37 36.4 C L 62 18 157/79 H 98 Room Air 01/10/24 09:03 Room Air 01/10/24 07:40 36.3 C L 63 18 144/75 H 96 Room Air 01/10/24 07:03 63 01/10/24 03:40 36.4 C L 71 18 114/62 92 Room Air Laboratory Results Abnormal lab results 01/09/24 01/09/24 01/09/24 Range/Units 16:15 18:10 Unknown Hgb (14.0-18.0) g/dl Hct (42.0-52.0) % RDW Std Deviation 48.1 H (36.4-46.3) fL RDW Coeff of Colt 15.9 H (11.5-14.5) % Neut # (Auto) 6.77 H (1.40-6.50) K/uL Lymph # (Auto) (1.20-3.40) K/uL Coryell # (Auto) 1.02 H (0.11-0.59) K/uL Sodium 134 L (136-145) mmol/L BUN 43 H (6-23) mg/dl Creatinine 2.46 H (0.6-1.4) mg/dl BUN/Creatinine Ratio (10-20) Glucose (70-99(Fasting)) mg/dl Calcium (8.6-10.3) mg/dl Troponin I High Sens 48.1 H 46.8 H (0-20) pg/ml Lipase 8 L (11-82) U/L TSH 8.899 H (0.300-4.500) uIu/ml Urine Appearance Cloudy A (Clear) Urine Protein 1+ H (Negative) Urine Ketones Trace H (Negative) Ur Leukocyte Esterase Trace H (Negative) Urine WBC (Auto) 6-10 H (0-5) /hpf U Hyaline Cast (Auto) >20 H (0-2) /lpf U Epithel Cells (Auto) 11-20 H (0-2) /hpf Hyaline Casts Present A (None Presnt) /lpf Urine Mucus Present A (None Prsent) 01/10/24 Range/Units 05:48 Hgb 13.3 L (14.0-18.0) g/dl Hct 39.8 L (42.0-52.0) % RDW Std Deviation 47.7 H (36.4-46.3) fL RDW Coeff of Colt 15.8 H (11.5-14.5) % Neut # (Auto) (1.40-6.50) K/uL Lymph # (Auto) 0.91 L (1.20-3.40) K/uL Coryell # (Auto) 0.79 H (0.11-0.59) K/uL Sodium 134 L (136-145) mmol/L BUN 44 H (6-23) mg/dl Creatinine 1.98 H D (0.6-1.4) mg/dl BUN/Creatinine Ratio 22.2 H (10-20) Glucose 101 H (70-99(Fasting)) mg/dl Calcium 8.5 L (8.6-10.3) mg/dl Troponin I High Sens (0-20) pg/ml Lipase (11-82) U/L TSH (0.300-4.500) uIu/ml Urine Appearance (Clear) Urine Protein (Negative) Urine Ketones (Negative) Ur Leukocyte Esterase (Negative) Urine WBC (Auto) (0-5) /hpf U Hyaline Cast (Auto) (0-2) /lpf U Epithel Cells (Auto) (0-2) /hpf Hyaline Casts (None Presnt) /lpf Urine Mucus (None Prsent) Diagnostic Findings Chest X-Ray 01/09/24 16:10 XR chest 1V portable HISTORY: 68 years-old Male Chest pain, nonspecific COMPARISON: 03/14/2020 TECHNIQUE: PA view of the chest FINDINGS: Electronic device projects over the left chest. Cardiomediastinal and hilar silhouettes are unchanged. No pneumothorax, pleural effusion or airspace consolidation. Spondylitic spurring of the spine. Unchanged appearance of the right scapula. IMPRESSION: No acute process. ACT 112: Negative or not required by law. The above report was generated using voice recognition software. It may contain grammatical, syntax or spelling errors. Electronically signed by: Brian Mayfield M.D. 01/09/2024 4:23 PM Abdomen/Pelvis CT 01/09/24 16:53 CT abd pelvis wo con CLINICAL HISTORY: florian ro kidney stone TECHNIQUE: Helical axial images of the abdomen and pelvis were obtained. Automated dose lowering techniques and/or adjustment according to patient size were utilized for this exam. This exam was performed without intravenous contrast. CT DOSE: 1521.46 mGy.cm COMPARISON: None available at the time of this dictation. FINDINGS: Lower chest: Bibasilar atelectasis versus scarring is seen. Liver: Unremarkable. No focal lesions are seen. Gallbladder and biliary tree: No calcified gallstones. Normal caliber wall. No intra- or extrahepatic biliary ductal dilation. Pancreas: Unremarkable, no focal lesions. Spleen: Unremarkable. Adrenals: Unremarkable. Kidneys and ureters: Perinephric stranding is noted bilaterally. Bladder: Unremarkable. Reproductive organs: Unremarkable. Bowel: Diverticulosis is seen without diverticulitis. The appendix is normal. Lymph nodes Retroperitoneal: Unremarkable. Pelvic: Unremarkable. Mesenteric: Unremarkable. Peritoneum: Normal. Vessels: Atherosclerotic calcifications are seen. Abdominal wall: Unremarkable. Bones: Degenerative changes in the visualized spine. IMPRESSION: 1. No hydronephrosis or obstructive nephrolithiasis is seen. 2. Diverticulosis without diverticulitis. 3. Additional findings as above. ACT 112: Negative or not required by law. Electronically signed by: Norbert Oneil M.D. 01/09/2024 5:51 PM PG Care Time/CCT Total # of Minutes Spent Total Time Spent with Patient: Total time spent is greater than 50% in coordination of care (as documented) at patient's floor/unit and/or counseling patient: Coding Level of Care Code 64248 SUB INP/OBS CARE 2/35MIN Diagnoses FLORIAN (acute kidney injury) N17.9 H/O heart artery stent Z95.5 Hypertension I10 Sleep apnea G47.30 Morbid obesity with BMI of 45.0-49.9, adult E66.01; Z68.42
[2024-01-10] MEDS: ACETAMINOPHEN 500 MG TAB PO PRN (21:11)
--- NOTE | 2024-01-11 06:18 | Electrocardiogram Report ---
Test Reason : Blood Pressure : / mmHG Vent. Rate : 056 BPM Atrial Rate : 056 BPM P-R Int : 194 ms QRS Dur : 084 ms QT Int : 446 ms P-R-T Axes : 075 010 073 degrees QTc Int : 430 ms Sinus bradycardia Otherwise normal ECG When compared with ECG of 25-AUG-2023 11:10, No significant change was found Confirmed by Brandt Pool ([id number]) on 01/11/2024 6:18:51 AM Referred By: Confirmed By:Brandt Pool
[2024-01-11 08:47] LABS: Basophils # (auto) 0.06 K/uL (0.00-0.20); Eosinophils # (auto) 0.26 K/uL (0.00-0.50); Eosinophils % (auto) 4.4 %; Hematocrit (blood only) 38.7 % (42.0-52.0); Hemoglobin 12.8 g/dl (14.0-18.0); Immature Granulocytes # (auto) 0.06 K/uL (0.01-0.20); Lymphocytes # (auto) 0.78 K/uL (1.20-3.40); Lymphocytes % (auto) 13.1 %; Mean Corpuscular Hemoglobin 27.2 pg (25.0-34.0); Mean Corpuscular Hgb Conc 33.1 g/dL (32.0-36.0); Mean Corpuscular Volume 82.3 fL (80.0-100.0); Mean Platelet Volume 9.4 fL (9.4-12.4); Monocytes # (auto) 0.76 K/uL (0.11-0.59); Monocytes % (auto) 12.8 %; Neutrophils # (auto) 4.04 K/uL (1.40-6.50); Neutrophils % (auto) 67.7 %; Platelet Count 170 K/uL (130-400); RDW Coefficient of Variation 15.7 % (11.5-14.5); RDW Standard Deviation 47.3 fL (36.4-46.3); White Blood Count 5.96 K/ul (4.8-10.8)
[2024-01-11 09:06] LABS: Albumin Globulin Ratio 1.1 (0.9-2); Albumin Level 3.6 gm/dl (3.4-5.0); BUN Creatinine Ratio 22.8 (10-20); Bilirubin,Total 0.5 mg/dl (0.2-1.0); Calcium 8.5 mg/dl (8.6-10.3); Creatinine Clr Calc Pharmacy 77.2 ml/min; Est GFR (African American) 66.4 ml/min; Est GFR (Non-African American) 57.3 ml/min; Globulin 3.2 gm/dl (2.5-4.0); Potassium 4.7 mmol/L (3.5-5.1); Total Protein 6.8 gm/dl (6.0-8.3)
[2024-01-11] MEDS: FUROSEMIDE 40 MG TAB PO SCH (12:39)
--- NOTE | 2024-01-11 14:46 | Hospitalist Progress Note ---
Date of Service January 11, 2024 Assessment & Plan (1) FLORIAN (acute kidney injury): Plan: Baseline Cr: 1.2 [December 21, 2023] Most likely due to contrast-induced nephropathy Upon holding lisinopril, furosemide, clindamycin, and with IV fluids, his creatinine has improved and is back to nearly his baseline. Will resume furosemide today. Already off of IV fluids Monitor creatinine tomorrow. If still down, likely discharge tomorrow (2) H/O heart artery stent: Plan: s/p December 27 stent to OM2 Troponin stable Continue ASA, clopidogrel, rosuvastatin (3) Hypertension: Plan: Lisinopril and furosemide were held due to acute kidney injury Will resume furosemide today as patient does have shortness of breath on exertion. (4) Sleep apnea: Plan: Noted history of this but not on CPAP as outpatient (5) Morbid obesity with BMI of 45.0-49.9, adult: Plan: His chronic dyspnea on exertion may be related to his morbid obesity. Plan VTE Prophaylaxis - heparin 5000 units SQ BID Diet - low potassium Likely discharge tomorrow Admission and Anticipated Discharge Date Admission Date: January 09, 2024 Subjective Patient still complains of shortness of breath on exertion. He says that going to the bathroom and coming back gets him short of breath. He does not say that he is particularly short more short of breath right now. Review of Systems Review of Systems: All systems reviewed & are unremarkable except as noted in Subjective Physical Exam Physical Exam: General: Awake, conversant, morbidly obese Heart: S1, S2/regular rate and rhythm, no murmur rubs or gallops Lungs: Clear to auscultation bilaterally. Normal effort Abdomen: Soft/nontender/nondistended. No hepatosplenomegaly Extremities: No clubbing/cyanosis. No edema Behavior: Appropriate, cooperative Results & Data Results & Data Vital Signs (Past 12 Hours) Vital Signs Temp Pulse Pulse Resp BP BP Pulse Ox 01/11/24 11:25 36.7 C 61 18 122/66 96 01/11/24 09:00 01/11/24 07:32 36.4 C L 73 18 116/69 96 01/11/24 07:00 73 01/11/24 04:04 36.6 C 74 18 128/68 94 O2 Del Method 01/11/24 11:25 Room Air 01/11/24 09:00 Room Air 01/11/24 07:32 Room Air 01/11/24 07:00 01/11/24 04:04 Room Air Laboratory Results Abnormal lab results 01/11/24 Range/Units 08:19 Hgb 12.8 L (14.0-18.0) g/dl Hct 38.7 L (42.0-52.0) % RDW Std Deviation 47.3 H (36.4-46.3) fL RDW Coeff of Colt 15.7 H (11.5-14.5) % Lymph # (Auto) 0.78 L (1.20-3.40) K/uL Hand # (Auto) 0.76 H (0.11-0.59) K/uL BUN 29 H (6-23) mg/dl BUN/Creatinine Ratio 22.8 H (10-20) Glucose 102 H (70-99(Fasting)) mg/dl Calcium 8.5 L (8.6-10.3) mg/dl PG Care Time/CCT Total # of Minutes Spent Total Time Spent with Patient: Total time spent is greater than 50% in coordination of care (as documented) at patient's floor/unit and/or counseling patient: Coding Level of Care Code 80861 SUB INP/OBS CARE 2/35MIN Diagnoses FLORIAN (acute kidney injury) N17.9 H/O heart artery stent Z95.5 Hypertension I10 Sleep apnea G47.30 Morbid obesity with BMI of 45.0-49.9, adult E66.01; Z68.42
[2024-01-12 07:12] LABS: Anion Gap 7 (3-11); BUN Creatinine Ratio 20.3 (10-20); Blood Urea Nitrogen 24 mg/dl (6-23); Calcium 8.8 mg/dl (8.6-10.3); Carbon Dioxide 25 mmol/L (21-32); Chloride 104 mmol/L (98-107); Creatinine Clr Calc Pharmacy 83.3 ml/min; Est GFR (African American) 72.5 ml/min; Est GFR (Non-African American) 62.6 ml/min; Glucose 102 mg/dl (70-99(Fasting)); Sodium 136 mmol/L (136-145)
--- NOTE | 2024-01-12 10:24 | Discharge Summary ---
Date of Service January 12, 2024 Admission HPI Per Admitting Provider Liam Oviedo is a 68 year old male who presents to the ER on the advice [facility] due to acute kidney injury following cardiac catheterization and stent placement on December 27 at the [facility] in [place]. Feeling the same since having his stent, no improvement with his dyspnea on exertion and diaphoresis. This has been ongoing for the last 6 months. He also notes no worse since the cardiac catheterization. No chest pain, palpitations, weight gain or leg swelling. He has ongoing poor urine stream for the last year and takes tamsulosin for this but no acute change. Otherwise not other urinary symptoms. No abdominal pain, nausea, vomiting or diarrhea. He thinks because of his kidney function getting worse he was told by his PCP last week on Tuesday to hold two of his medications - he thinks furosemide (presumably the other one was lisinopril). Labs this morning were repeat to keep a close eye on his renal function. Cr 2.2 [01/09/24], 1.9 [01/04/2024], 1.2 [12/21/2023] BUN 36, 34, 26 Admission Exam Per Admitting Provider Constitutional: well developed; + not well nourished and no acute distress Eyes: PERRL, conjunctivae normal, anicteric sclerae ENMT: external ear and nose normal, oropharynx normal Respiratory: normal respiratory effort, lungs clear to auscultation Cardiovascular: Rate/Rhythm: regular rate and regular rhythm Heart Sounds: no murmur Extremities: normal capillary refill and + pedal edema (trace pitting b/l equal); no calf tenderness Gastrointestinal (Abdomen): normal bowel sounds, soft, nontender, no hepatosplenomegaly Musculoskeletal: no cyanosis or clubbing, extremities motor strength 5/5 Skin: no rashes, warm and dry Neurologic: moves all extremities and awake; not confused Psychiatric: A+Ox3, euthymic affect Genitourinary: no CVA tenderness Principal Diagnosis Acute kidney injury: Due to contrast-induced nephropathy. Now resolved. Discharge Exam General: Awake, conversant, morbidly obese Heart: S1, S2/regular rate and rhythm, no murmur rubs or gallops Lungs: Clear to auscultation bilaterally. Normal effort Abdomen: Soft/nontender/nondistended. No hepatosplenomegaly Extremities: No clubbing/cyanosis. No edema Behavior: Appropriate, cooperative Discharge Data Allergies Allergy/AdvReac Type Severity Reaction Status Date / Time Influenza Virus Vaccines Allergy Severe allergy? Verified 01/09/24 19:29 rxn = "passed out" Consultations 01/09/24 17:55 ED Decision to Admit Stat Ordered Studies 01/09/24 16:53 CT abd pelvis wo con Stat Hospital Course (1) FLORIAN (acute kidney injury): Baseline Cr: 1.2 [December 21, 2023] Most likely due to contrast-induced nephropathy Resolved Resumed furosemide Resume lisinopril upon discharge (2) H/O heart artery stent: s/p December 27 stent to OM2 Troponin stable Continue ASA, clopidogrel, rosuvastatin (3) Hypertension: Lisinopril and furosemide were held due to acute kidney injury Resumed furosemide with stable creatinine Will resume lisinopril upon discharge (4) Sleep apnea: Noted history of this but not on CPAP as outpatient (5) Morbid obesity with BMI of 45.0-49.9, adult: His chronic dyspnea on exertion may be related to his morbid obesity. Plan Discharge to home today Total Time Total Time Spent Total Time Spent (In Minutes): 35 Discharge Plan Discharge Items Patient Disposition: Home - Self-Care Reason For Visit: FLORIAN Discharge Diagnosis: Acute kidney injury: Due to contrast-induced nephropathy. Now resolved. Activity: Resume your previous activity Non-emergency contact: Primary Care Provider Call non-emergency contact if: you have any medication questions and your symptoms worsen Follow-up/Referrals: Brynn Bull CRNP [Primary Care Provider] - (PLEASE CALL YOUR PRIMARY CARE PROVIDER TO SCHEDULE A HOSPITAL DISCHARGE FOLLOW-UP APPOINTMENT WITHIN 7-10 DAYS) Diet: Heart Healthy Addtl Attending Provider Instructions: Advised to follow-up with PCP in 1 week Pending Studies at Discharge: No Stand-Alone Forms: My [facility] [employer] Medications and DC Order Prescriptions: Continued tamsulosin 0.4 mg capsule 0.4 mg PO HS rosuvastatin 40 mg tablet 20 mg PO HS aspirin 81 mg tablet,chewable 81 mg PO DAILY lisinopril 20 mg Tablet 20 mg PO QAM Rx Instructions: PER [facility] escitalopram oxalate [Lexapro] 20 mg Tablet 20 mg PO QAM duloxetine 30 mg Capsule,Delayed Release(Dr/Ec) 30 mg PO QAM Rx Instructions: Take 30mg capsule w/ 60mg capsule by mouth once every morning clindamycin HCl 150 mg capsule 300 mg PO TID furosemide [Lasix] 40 mg Tablet 40 mg PO DAILY magnesium oxide 420 mg Tablet 420 mg PO DAILY atenolol 25 mg Tablet 25 mg PO DAILY clopidogrel [Plavix] 75 mg Tablet 75 mg PO DAILY bupropion HCl 75 mg Tablet 75 mg PO QAM albuterol sulfate 90 mcg/actuation Hfa Aerosol Inhaler 1 inh INHALATION QID PRN (Reason: sob/wHEEZING) buspirone 15 mg Tablet 30 mg PO BID duloxetine 60 mg Capsule,Delayed Release(Dr/Ec) 60 mg PO QAM Rx Instructions: Take 60mg capsule w/ 30mg capsule by mouth once every morning pregabalin [Lyrica] 150 mg Capsule 150 mg PO BID cholecalciferol (vitamin D3) [Vitamin D3] 25 mcg (1,000 unit) Tablet 25 mcg PO DAILY diclofenac sodium 1 % Gel 2 g TOPICAL TID PRN (Reason: KNEE PAIN) Discharge Orders: Discharge Order (Routine); Ordered 01/12/24 Ordered By: Ebony Lynn Admission Data Admit Date/Time: 01/09/24 18:53 Attending Provider: Ebony Lynn Admit Provider: Giancarlo Davis Primary Care Provider: Brynn Bull Other Providers: Giancarlo Davis; [facility] Other Interventions: Discharge Summary Assessment (RN) Last Done: 01/12/24 10:55 Coding Level of Care Code 24538 INP/OBS DISCH >30 MIN Diagnoses FLORIAN (acute kidney injury) N17.9 H/O heart artery stent Z95.5 Hypertension I10 Sleep apnea G47.30 Morbid obesity with BMI of 45.0-49.9, adult E66.01; Z68.42
== END 2024-01-12 12:45 | disposition home or self-care (01) | DRG 683 ==
LOC: ED 16:02 → 2W 18:53 → SUATTDRO 18:53 → 2W 20:59